=== PATIENT | male | born 1950 | race Caucasian/White ===

== ENCOUNTER 2019-03-30 11:25 | Inpatient (IN) | payer MEDICARE, BC ==
[2019-03-30] MEDS ORDERED: methylPREDNISolone Sodium Succinate 125 MG/2 ML SDV IVPUSH ONE (11:44)
[2019-03-30] MEDS ORDERED: Sodium Chloride 0.9% 1,000 ML IV ONE (11:45)
[2019-03-30] MEDS: Albuterol/Ipratropium 3.0-0.5 MG/3 ML Neb Soln NEB SCH ×3 (12:25→22:47)
[2019-03-30] MEDS ORDERED: Albuterol 0.083% 2.5 MG/3 ML Neb Soln NEB PRN (12:38)
[2019-03-30] MEDS: Sodium Chloride 0.9% 10 ML Syringe FLUSH PRN (12:39)
[2019-03-30 12:40] LABS: ANION GAP 15.1 mmol/L (5-15); CHLORIDE,CL 100 mmol/L (98-115); SODIUM,NA 141 mmol/L (136-145)
[2019-03-30 12:42] LABS: O2 DELIVERY DEVICE ROOM AIR; O2 SATURATION ARTERIAL 92 % (95-98); PCO2 ARTERIAL 41 mmHG (35-45); PO2 ARTERIAL 62 mmHG (80-105)
[2019-03-30 12:43] LABS: BASE EXCESS ARTERIAL 3 mmol/L (-2-3); BICARBONATE,ARTERIAL 27.2 mmol/L (22-26)
[2019-03-30] MEDS: Azithromycin 500 MG in Sodium Chloride 0.9% 250 ML IV SCH (13:04)
[2019-03-30] MEDS: cefTRIAXone 1 GM Vial IV SCH (13:04)
[2019-03-30] MEDS ORDERED: Cyclobenzaprine 10 MG Tab PO PRN (13:21)
[2019-03-30] MEDS: Sodium Chloride 0.9% 1,000 ML IV SCH ×2 (13:28→22:51)
--- NOTE | 2019-03-30 13:36 | CR ---
[id number] RAD/RAD Chest PA And Lateral EXAM: RAD Chest PA And Lateral INDICATION: COUGH. COMPARISON: March 09, 2019. DISCUSSION: Cardiomediastinal silhouette is normal in size and contour. No infiltrate, effusion, pneumothorax, or edema. IMPRESSION: No significant cardiopulmonary abnormality. Kevin Mckeon DO 03/30/19 [id number] Thank you for allowing us to participate in the care of your patient.
[2019-03-30] MEDS ORDERED: Iopamidol 755 Mg/ML 100 ML Bottle IV ONE (13:50)
[2019-03-30] MEDS ORDERED: Sodium Chloride 0.9% 100 ML IV SCH (14:00)
[2019-03-30] MEDS: Codeine/guaiFENesin 100-10 MG/5 ML Syrup 5 ML Cup PO PRN ×2 (14:01→22:47)
[2019-03-30] MEDS: Budesonide 0.5 MG/2 ML Neb Susp NEB SCH ×2 (14:48→21:12)
--- NOTE | 2019-03-30 15:24 | CT ---
[id number] CT/CT Chest W IV Exam: CT Chest W IV Clinical Data: BRONCHITIS COMPARISON: CORRELATION IS MADE WITH TODAY'S PLAIN FILM FINDINGS: Pulmonary embolus technique was obtained No pulmonary emboli are seen There is no evidence of infiltrate, effusion, or lung mass. There is no mediastinal mass or adenopathy The great vessels appear to be intact. IMPRESSION: NO PULMONARY EMBOLI NO INFILTRATE. Getachew Trejo MD 03/30/19 1523 Thank you for allowing us to participate in the care of your patient.
[2019-03-31] MEDS: Codeine/guaiFENesin 100-10 MG/5 ML Syrup 5 ML Cup PO PRN (02:49)
[2019-03-31] MEDS: Albuterol/Ipratropium 3.0-0.5 MG/3 ML Neb Soln NEB SCH ×3 (05:54→17:47)
[2019-03-31] MEDS: Budesonide 0.5 MG/2 ML Neb Susp NEB SCH ×2 (07:20→20:17)
[2019-03-31 07:57] LABS: ANION GAP 15.1 mmol/L (5-15); CHLORIDE,CL 98 mmol/L (98-115); SODIUM,NA 135 mmol/L (136-145)
[2019-03-31] MEDS: atorvaSTATin 40 MG Tab PO SCH (08:15)
[2019-03-31] MEDS: Aspirin 81 MG Tab.EC PO SCH (08:15)
[2019-03-31] MEDS: glipiZIDE 5 MG Tab.ER PO SCH (08:15)
[2019-03-31] MEDS: Losartan 50 MG Tab PO SCH (08:17)
[2019-03-31] MEDS: Hydrochlorothiazide 12.5 MG Cap PO SCH (08:18)
[2019-03-31] MEDS: amLODIPine 5 MG Tab PO SCH (08:18)
[2019-03-31] MEDS ORDERED: Furosemide 40 MG/4 ML VIAL IVPUSH ONE (09:00)
[2019-03-31] MEDS: methylPREDNISolone Sodium Succinate 125 MG/2 ML SDV IVPUSH SCH ×2 (10:19→17:46)
--- NOTE | 2019-03-31 12:31 | PN ---
03/31/2019 PATIENT NAME: LETI WHITTINGTON HISTORY OF PRESENT ILLNESS: This is 69-year-old male, who presented to the clinic yesterday with bronchitis and bronchospasm. He had recently been hospitalized in the [facility] for the same. He was treated with IV antibiotics and steroids as well as inhaled bronchodilators and did improve. However, relapsed on March 28, 2019. The patient started having a moist cough, but was unable to bring anything up. Initially, the mucus was yellow. The night before last, the night before he was admitted, his symptoms became extremely bad with consistent coughing. He felt short of breath and also felt as though he was wheezing. He had a negative influenza A and B testing in the [facility]. His influenza A and B were repeated yesterday and they were found to be negative as well. CBC was normal yesterday. Today, he is trending up with his WBCs, but I believe this is secondary to steroids. Initial blood gases showed a pH of 7.43, PCO2 of 41, PO2 of 62, bicarb of 27.2. He was on room air at the time of the ABGs and now is on 2 L of oxygen. CMP yesterday had significant findings for an elevated ALT, which is normalized today at 70. Today, his sodium is somewhat low at 135, which is just borderline low. Renal function is excellent with a BUN of 20 and a creatinine of 0.76 and a GFR of greater than 60. Lactate yesterday was 3.1. He does have blood cultures pending. He also has a sputum culture pending. The patient reports he is actually feeling quite a bit better today, although he did sleep most of the night sitting up. He was unable to lay down as this triggered a cough. The nursing staff reports that the patient has gained 2 pounds and they have noted some edema in his lower extremities. He is using compression stockings. He states that he had lower extremity edema in the [facility] as well. This has gotten worse. This may be secondary to his intravenous fluids. He did receive Solu-Medrol 125 mg IV x1 yesterday. He is being treated with ceftriaxone as well as azithromycin. The patient's chest x-ray showed no pneumonia and chest CT performed yesterday was negative for pulmonary embolism as well. PHYSICAL EXAMINATION: VITAL SIGNS: Temp is 97.1, pulse 96, respirations 20, blood pressure 124/73, his O2 saturation is 95% on 2 L of oxygen. SKIN: Warm and dry to touch. CARDIAC: Reveals S1, S2 to be normal. Rate and rhythm are regular. No murmur, click, or gallop is auscultated. LUNGS: Has some faintly heard rhonchi throughout with no wheezes or crackles. ABDOMEN: Obese, nontender. Bowel sounds present in all four quadrants. He does have a moderate amount of edema in his right lower extremity and a mild amount of edema in his left lower extremity. Peripheral pulses are palpable bilaterally. There are no color changes. IMPRESSION: Bronchitis with bronchospasm. The patient will remain in the hospital today and possibly tomorrow. He will be treated with Solu-Medrol 80 mg IV t.i.d. He will continue on azithromycin as well as Rocephin. He will have daily labs. We will give him a one-time dose of Lasix 40 mg IV x1 today. IV fluids will be discontinued. We will add a BNP to his lab work today. I have discussed the case with Dr. Shira Osorio and she may look in on him today as well. We will continue to monitor and I will see him over the weekend. /[id number]/MODL
[2019-03-31] MEDS: cefTRIAXone 1 GM Vial IV SCH (13:02)
[2019-03-31] MEDS: Azithromycin 500 MG in Sodium Chloride 0.9% 250 ML IV SCH (13:03)
[2019-04-01] MEDS: Albuterol/Ipratropium 3.0-0.5 MG/3 ML Neb Soln NEB SCH ×5 (00:40→22:56)
[2019-04-01] MEDS: methylPREDNISolone Sodium Succinate 125 MG/2 ML SDV IVPUSH SCH ×3 (00:47→11:47)
[2019-04-01 08:14] LABS: ANION GAP 15.1 mmol/L (5-15); CHLORIDE,CL 102 mmol/L (98-115); SODIUM,NA 141 mmol/L (136-145)
[2019-04-01] MEDS: Budesonide 0.5 MG/2 ML Neb Susp NEB SCH ×2 (09:44→19:55)
[2019-04-01] MEDS: Aspirin 81 MG Tab.EC PO SCH (09:48)
[2019-04-01] MEDS: glipiZIDE 5 MG Tab.ER PO SCH (09:48)
[2019-04-01] MEDS: Losartan 50 MG Tab PO SCH (09:48)
[2019-04-01] MEDS: atorvaSTATin 40 MG Tab PO SCH (09:48)
[2019-04-01] MEDS: amLODIPine 5 MG Tab PO SCH (09:48)
[2019-04-01] MEDS: Hydrochlorothiazide 12.5 MG Cap PO SCH (09:48)
[2019-04-01] MEDS: metFORMIN 500 MG Tab PO SCH ×2 (09:52→20:14)
[2019-04-01] MEDS ORDERED: Furosemide 40 MG/4 ML VIAL IVPUSH ONE (10:00)
[2019-04-01 10:08] LABS: O2 DELIVERY DEVICE ROOM AIR; PCO2 ARTERIAL 44 mmHG (35-45)
[2019-04-01 10:10] LABS: BASE EXCESS ARTERIAL 0 mmol/L (-2-3); BICARBONATE,ARTERIAL 25.6 mmol/L (22-26); O2 SATURATION ARTERIAL 78 % (95-98); PO2 ARTERIAL 44 mmHG (80-105)
[2019-04-01] MEDS: cefTRIAXone 1 GM Vial IV SCH (11:48)
[2019-04-01] MEDS ORDERED: Sodium Chloride 0.9% 100 ML SDV FLUSH SCH (12:00)
[2019-04-01] MEDS: Azithromycin 500 MG in Sodium Chloride 0.9% 250 ML IV SCH (12:11)
[2019-04-01] MEDS ORDERED: Sodium Chloride 0.9% 10 ML SDV IV SCH (12:15)
[2019-04-01] MEDS ORDERED: Sodium Chloride 0.9% 100 ML IV SCH ×2 (12:45)
[2019-04-01] MEDS: Codeine/guaiFENesin 100-10 MG/5 ML Syrup 5 ML Cup PO PRN (16:48)
[2019-04-01] MEDS ORDERED: Insulin Aspart 100 Units/ML 3 ML Pen SUBCUT ONE ×3 (20:34→23:31)
[2019-04-02] MEDS: methylPREDNISolone Sodium Succinate 125 MG/2 ML SDV IVPUSH SCH ×3 (00:11→12:32)
[2019-04-02] MEDS: Sodium Chloride 0.9% 10 ML Syringe FLUSH PRN (00:16)
[2019-04-02] MEDS: Insulin Aspart 100 Units/ML 3 ML Pen SUBCUT SCH ×4 (00:18→12:10)
[2019-04-02] MEDS: Albuterol/Ipratropium 3.0-0.5 MG/3 ML Neb Soln NEB SCH ×2 (06:02→10:53)
[2019-04-02 06:06] VITALS: BP 122/66; PULSE 88
[2019-04-02 08:02] LABS: ANION GAP 15.9 mmol/L (5-15); CHLORIDE,CL 100 mmol/L (98-115); SODIUM,NA 140 mmol/L (136-145)
[2019-04-02] MEDS: Budesonide 0.5 MG/2 ML Neb Susp NEB SCH (08:22)
[2019-04-02] MEDS: amLODIPine 5 MG Tab PO SCH (08:22)
[2019-04-02] MEDS: Aspirin 81 MG Tab.EC PO SCH (08:23)
[2019-04-02] MEDS: Losartan 50 MG Tab PO SCH (08:23)
[2019-04-02] MEDS: Hydrochlorothiazide 12.5 MG Cap PO SCH (08:23)
[2019-04-02] MEDS: metFORMIN 500 MG Tab PO SCH (08:24)
[2019-04-02] MEDS: glipiZIDE 5 MG Tab.ER PO SCH (08:24)
[2019-04-02] MEDS: atorvaSTATin 40 MG Tab PO SCH (08:24)
[2019-04-02] MEDS: cefTRIAXone 1 GM Vial IV SCH ×2 (10:43→12:32)
[2019-04-02] MEDS: Azithromycin 500 MG in Sodium Chloride 0.9% 250 ML IV SCH ×2 (10:48→12:32)
--- NOTE | 2019-04-03 10:06 | PN ---
04/01/2019 PATIENT NAME: LETI WHITTINGTON SUBJECTIVE: This is a 69-year-old male, who has been hospitalized since 03/30/2019, for bronchitis with bronchospasm. The patient states he is feeling quite a bit better. His chest x-ray was negative for pneumonia, and his chest CT was negative for pneumonia as well as pulmonary embolism. He was recently hospitalized in the [facility] for 5 days prior to the holiday. He did feel like he improved and was able to enjoy . However, on his condition declined considerably and he relapsed. He has been treated with IV steroid as well as IV ceftriaxone and azithromycin. He is diabetic and takes glipizide as well as metformin. His metformin has been held for the last 2 days due to the contrast dye given with his CT scan. His blood sugars have been elevated due to not being on metformin and also being on IV steroids. His lactate was 3.1 on admission. His ABG showed that he was somewhat hypoxic with a PO2 of 62. He is not retaining any CO2. The CO2 is 41, pH was 7.43. Other significant labs include a normal procalcitonin and a trending upward of his white blood cell count, again secondary to the steroids. The patient states he is feeling better. He actually slept very well last night, which is the first time in a long time that he has. His and he just celebrated their 50th anniversary yesterday and a small green party was given for the patient by our staff. His is with him at the bedside. The patient clinically appears to be feeling better. He was given a one time dose of Lasix 40 mg IV yesterday due to the fact that he had some fluid retention secondary to IV fluids. His BNP was normal at 53. OBJECTIVE: VITAL SIGNS: On examination, temp 96.8, pulse 80, respirations 16, blood pressure 120/66. His O2 saturation is 91% on room air at 3 a.m. It was 86% on 2 L. SKIN: Warm and dry to touch. CARDIAC: Reveals S1 and S2 to be normal. Rate and rhythm are regular. No murmur, click, or gallops auscultated. LUNGS: Clear. ABDOMEN: Soft, nontender. Bowel sounds present in all 4 quadrants. There is a small amount of pedal edema, right greater than left. IMPRESSION: 1. Bronchitis with bronchospasm. The patient is improving considerably and will be ready for discharge tomorrow provided that his condition does not deteriorate. He is improving. He feels better, he looks better, and he sounds better. His labs have stayed stable. We did repeat arterial blood gases today, and I will review them when they are available. Solu-Medrol was decreased from 80 mg t.i.d. to 80 mg b.i.d. He will receive an IV dose of 80 mg of Solu-Medrol in the morning prior to discharge and will be placed on a steroid taper after discharge as well as oral azithromycin. 2. Pedal edema. He still has some lingering pedal edema. I will give him a dose of Lasix again today to hopefully improve that. The patient has no history of congestive heart failure. 3. Hypoxemia, mild. I did repeat the ABGs today just to see where he is at as compared to his baseline. He is not wearing oxygen at this time. Chest x- ray was negative for pneumonia and his CT was negative for pulmonary embolism. He may have a component of sleep apnea, which he is fully aware of. He rarely sleeps very well at night. He may be a good candidate for a sleep study. 4. Diabetes mellitus, uncontrolled. Risk versus benefit ratio discussed with the patient as far as his blood sugars go in regard to the use of the steroids. He will start back on his metformin today. 5. Hypertension, his blood pressure has been stable. He is currently taking amlodipine as well as losartan-HCTZ. Amlodipine may be contributing to the pedal edema as well. 6. Hypercholesterolemia. He is on atorvastatin. PLAN: Discharge tomorrow. /[id number]/MODL
--- NOTE | 2019-04-03 13:55 | DISCH ---
HISTORY OF PRESENT ILLNESS: This is 69-year-old male, who was admitted to the hospital on March 30, 2019, with bronchitis and bronchospasm. He had had a recent hospitalization in the [facility] for the same. He did improve after antibiotics and IV steroids, but relapsed on [place] '[place]. The patient has gradually improved. His labs have remained stable. The only uncontrolled lab was his blood sugars. He was started on a sliding scale of insulin yesterday. He has received two doses of IV furosemide due to some lower extremity edema. The patient is improved from pulmonary standpoint. He did have ABGs repeated yesterday which showed a PO2 of 44 with an O2 saturation of 98. I am unclear whether this is possibly a venous stick. He had been saturating in the 90s. We did have him on oxygen during his hospitalization. The patient is ready for discharge. He does not have a glucometer at home at this time. He does own a glucometer, however, is at his [facility]. White count has been slightly elevated, mostly due to the steroids. PHYSICAL EXAMINATION: VITAL SIGNS: Temp is 97.7, pulse 88, respirations 20, blood pressure 122/66, O2 saturation is 92% on 2 L of oxygen. SKIN: Warm and dry to touch. CARDIAC: Reveals S1, S2 to be normal. Rate and rhythm are regular. No murmur, click, or gallop is auscultated. LUNGS: Clear without rales, wheezes, or rhonchi. ABDOMEN: Obese, soft, nontender. Bowel sounds present in all four quadrants. There is a trace amount of pedal edema with the right being worse than the left. PROBLEM: 1. Bronchitis with bronchospasm. He has improved from a pulmonary standpoint. He will continue on a prednisone taper. No need for further antibiotics as he had been covered with both ceftriaxone and azithromycin in the hospital. 2. 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 He was discharged with glipizide increased from 10 mg to 20 mg. He will need an Endocrinology consultation if his diabetes does not improve. It has been uncontrolled for quite some time. The patient needs to get more serious and more committed to lifestyle changes as well as monitoring his blood glucose levels. 3. Pedal edema, etiology unclear, however, it may be secondary to his amlodipine. We will continue to keep an eye on this. 4. Hypertension, stable with losartan and HCTZ and amlodipine. 5. Hypercholesterolemia, on statin. 6. Hypoxemia, I am unclear whether his ABGs were accurate. His chest x-ray was negative for pneumonia and CT was negative for PE. He may have a component of sleep apnea, which he is fully aware of. He rarely sleeps very well at night. He would be a good candidate for sleep study and this will be scheduled for him as an outpatient. /[id number]/MODL
== END 2019-04-02 13:05 | disposition home or self-care (01) | DRG 203 ==
LOC: KA.MS 11:25 → UNDOADMOB 11:28 → OBSVTOIN 13:35 → KA.MS 13:35
DX: R05 Cough (principal); J40 Bronchitis, not specified as acute or chronic; J98.01 Acute bronchospasm; R09.02 Hypoxemia; E11.9 Type 2 diabetes mellitus without complications; T38.0X5A Adverse effect of glucocorticoids and synthetic analogues, initial encounter; T46.1X5A Adverse effect of calcium-channel blockers, initial encounter; R60.0 Localized edema; I10 Essential (primary) hypertension; E78.00 Pure hypercholesterolemia, unspecified; Z79.84 Long term (current) use of oral hypoglycemic drugs; Z79.82 Long term (current) use of aspirin; Z79.899 Other long term (current) drug therapy; Z98.890 Other specified postprocedural states
CPT/HCPCS: 36415; 36600; 71046; 71260; 80053; 81001; 82803; 82962; 83605; 83880; 84145; 85025; 87040; 87077; 87804; 94640; 96365; 96375; A9270-GY; G0378; J0456; J0696; J1815-GY; J1940; J2930; J7030; J7050; J7620-GY; Q9967

== ENCOUNTER 2019-04-08 18:17 | Emergency (ER) | payer MEDICARE, BC ==
--- NOTE | 2019-04-08 19:21 | CR ---
[id number] RAD/RAD Chest PA And Lateral EXAM: RAD Chest PA And Lateral CLINICAL DATA: COUGH COMPARISON: CORRELATION IS MADE WITH THE EXAM OF MARCH 30, 2019 FINDINGS: The lungs are clear. The cardiomediastinal contour is prominent but stable. The regional bones and soft tissues are unremarkable. IMPRESSION: NO ACUTE PROCESS. Getachew Trejo MD 04/08/19 8453 Thank you for allowing us to participate in the care of your patient.
--- NOTE | 2019-04-08 19:24 | EDM.PDOC ---
ED HPI GENERAL MEDICAL PROBLEM - General Chief Complaint: General Stated Complaint: rattly respirations Time Seen by Provider: 04/08/19 19:04 Source of Information: Reports: Patient, Other (records from recent hospitalizations (two in last 4 weeks)) History Limitations: Reports: No Limitations - History of Present Illness INITIAL COMMENTS - FREE TEXT/NARRATIVE: Patient presents with unproductive cough that is worse again he says. He was discharged from [facility] 6 days ago and had been hospitalized for 5 days in [place] 2 weeks prior to that. Both admissions were for Bronchitis with bronchospasm. Each time he improved somewhat but then worsened a few days later. He says the crackly-gurgly sound with his breathing never resolved though. Today he is getting worse again and coughing all the time. The coughing gets so bad when he lies down that he really can't and is unable to sleep. He has been treated with IV antibiotics, lasix, prednisone. He is still on a long prednisone taper currently. - Related Data Allergies Allergy/AdvReac Type Severity Reaction Status Date / Time No Known Drug Allergies Allergy Cannot Verified 04/08/19 18:33 Remember Home Meds: Home Meds Aspirin [Halfprin] 81 mg PO DAILY 04/13/15 [History] Losartan/Hydrochlorothiazide [Losartan-HCTZ 100-12.5 MG] 1 tab PO DAILY [History] atorvaSTATin [Lipitor] 40 mg PO BEDTIME 04/13/15 [History] metFORMIN HCl [Metformin HCl] 1,000 mg PO BID 04/13/15 [History] Cyclobenzaprine HCl 10 mg PO BEDTIME PRN 03/30/19 [History] amLODIPine Besylate [Amlodipine Besylate] 10 mg PO DAILY 03/30/19 [History] glipiZIDE [Glipizide Xl] 10 mg PO DAILY 03/30/19 [History] predniSONE [Prednisone] 10 mg PO DAILY 04/08/19 [History] Past Medical History HEENT History: Reports: Cataract, Impaired Vision Cardiovascular History: Reports: High Cholesterol, Hypertension Respiratory History: Reports: None, Other (See Below) Other Respiratory History: Pneumonia in the past Gastrointestinal History: Reports: None Genitourinary History: Reports: Renal Calculus Musculoskeletal History: Reports: None Neurological History: Reports: None Psychiatric History: Reports: None Endocrine/Metabolic History: Reports: Diabetes, Type II, Obesity/BMI 30+ Hematologic History: Reports: None Immunologic History: Reports: None Oncologic (Cancer) History: Reports: None Dermatologic History: Reports: None - Infectious Disease History Infectious Disease History: Reports: None - Past Surgical History Head Surgeries/Procedures: Reports: None HEENT Surgical History: Reports: Cataract Surgery Cardiovascular Surgical History: Reports: None Respiratory Surgical History: Reports: None Male Surgical History: Reports: Kidney Stone Extraction Musculoskeletal Surgical History: Reports: None Social & Family History - Family History Family Medical History: Noncontributory - Tobacco Use Smoking Status *Q: Never Smoker Second Hand Smoke Exposure: No - Caffeine Use Caffeine Use: Reports: Coffee - Recreational Drug Use Recreational Drug Use: No ED ROS GENERAL - Review of Systems Review Of Systems: See Below Constitutional: Denies: Fever, Chills HEENT: Denies: Throat Pain, Vision Change Respiratory: Reports: Shortness of Breath, Cough. Denies: Sputum Cardiovascular: Denies: Chest Pain, Lightheadedness, Syncope GI/Abdominal: Denies: Diarrhea, Vomiting : Denies: Dysuria Musculoskeletal: Denies: Neck Pain, Shoulder Pain, Arm Pain, Back Pain Skin: Denies: Cyanosis, Jaundice, Mottled, Pallor, Diaphoresis Neurological: Denies: Confusion, Dizziness, Headache, Seizure, Syncope, Trouble Speaking, Difficulty Walking Psychiatric: Denies: Agitation, Anxiety, Confusion ED EXAM, GENERAL - Physical Exam Exam: See Below Exam Limited By: No Limitations General Appearance: Alert, WD/WN, No Apparent Distress Eye Exam: Bilateral Eye: EOMI, Normal Inspection, PERRL Ears: Normal External Exam, Hearing Grossly Normal Nose: Normal Inspection, No Blood Throat/Mouth: Normal Inspection, Normal Lips, Normal Voice, No Airway Compromise Head: Atraumatic, Normocephalic Neck: Normal Inspection, Full Range of Motion Respiratory/Chest: Crackles, Rhonchi, Other (There are audible crackles with expiration and auscultation reveals loud coarse crackles and fine rhonchi throughout but worse on left lung.). No: Stridor Cardiovascular: Regular Rate, Rhythm GI/Abdominal: Soft, Non-Tender Back Exam: Normal Inspection, Full Range of Motion. No: CVA Tenderness (L), CVA Tenderness (R) Extremities: Normal Range of Motion, Pedal Edema (3-4 bilat) Neurological: Alert, Oriented, Normal Cognition, No Motor/Sensory Deficits Psychiatric: Normal Affect, Normal Mood Skin Exam: Warm, Dry, Intact, Normal Color, No Rash Course - Vital Signs Last Recorded V/S: Last Vital Signs Temp 97.1 F 04/08/19 18:30 Pulse 84 04/08/19 20:01 Resp 20 04/08/19 20:01 BP 121/69 04/08/19 20:01 Pulse Ox 94 L 04/08/19 20:01 - Orders/Labs/Meds Labs: Laboratory Tests 04/08/19 04/08/19 04/08/19 Range/Units 07:05 07:05 07:05 WBC 12.53 H (5.00-10.00) 10^3/uL RBC 5.56 (4.50-6.00) 10^6/uL Hgb 16.8 D (13.0-17.0) g/dL Hct 49.6 (40.0-52.0) % MCV 89.2 (82.0-92.0) fL MCH 30.2 (27.0-31.0) pg MCHC 33.9 (32.0-36.0) g/dL RDW 13.4 (11.5-14.5) % Plt Count 278 D (150-400) 10^3/uL MPV 9.6 (7.4-10.4) fL Immature Gran % (Auto) 2.2 (0.0-5.0) % Neut % (Auto) 84.0 H (50.0-70.0) % Lymph % (Auto) 8.5 L (20.0-40.0) % [place] % (Auto) 5.2 (2.0-8.0) % Eos % (Auto) 0.0 L (1.0-3.0) % Baso % (Auto) 0.1 (0.0-1.0) % Immature Gran # (Auto) 0.27 (0.00-0.50) 10^3/uL Neut # (Auto) 10.54 H (2.50-7.00) 10^3/uL Lymph # (Auto) 1.06 (1.00-4.00) 10^3/uL [place] # (Auto) 0.65 (0.10-0.80) 10^3/uL Eos # (Auto) 0.00 L (0.10-0.30) 10^3/uL Baso # (Auto) 0.01 (0.00-0.10) 10^3/uL Sodium 140 (136-145) mmol/L Potassium 4.9 (3.3-5.3) mmol/L Chloride 101 (98-115) mmol/L Carbon Dioxide 26.3 (21.0-32.0) mmol/L Anion Gap 17.6 H (5-15) mmol/L BUN 23 (6-25) mg/dL Creatinine 0.85 (0.51-1.17) mg/dL Est Cr Clr Drug Dosing 74.52 mL/min Estimated GFR (MDRD) > 60 mL/min Glucose 260 H (75 - 99) mg/dL Lactic Acid 4.4 H (0.4-2.0) mmol/L Calcium 9.8 (8.7-10.3) mg/dL Total Bilirubin 1.1 H (0.2-1.0) mg/dL AST 29 (15-37) U/L ALT 114 H (12-78) U/L Alkaline Phosphatase 78 (46-116) IU/L B-Natriuretic Peptide 27 (0-100) pg/mL Total Protein 7.0 (6.4-8.2) g/dL Albumin 3.31 (3.00-4.80) g/dL - Re-Assessments/Exams Free Text/Narrative Re-Assessment/Exam: 04/08/19 20:17 CXR is clear. Labs show elevated mildly WBC and ANC consistent with prednisone course and not higher than he was during his hospitalization last week. With the severity of the respiratory crackles and their persistence despite two hospitalizations and treatment I feel he needs further evaluation by a funeral home location manager. Patient agrees and I discussed case with Dr. Ruiz, hospitalist at [facility] in [place] who accepted for transfer. Patient is stable for transfer via private vehicle, I feel, with his daughter driving. They would prefer this too. We pushed the last two sets of CXR and chest CT to [facility] also. Dr. 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 04/08/19 20:23 Patient stable at discharge and he will go directly to [facility]. Departure - Departure Time of Disposition: 20:28 Disposition: DC/Tfer to Acute Hospital 02 Condition: Good Clinical Impression: Persistent cough for 3 weeks or longer, Respiratory crackles of both lungs - Discharge Information Forms: ED Department Discharge Additional Instructions: 1. Go to [facility] in [place]. Sepsis Event Note - Evaluation Sepsis Screening Result: No Definite Risk - Focused Exam Vital Signs: Vital Signs Temp Pulse Resp BP Pulse Ox 04/08/19 20:01 84 20 121/69 94 L 04/08/19 18:30 97.1 F 96 22 H 104/55 L 92 L Date Exam was Performed: 04/08/19 Time Exam was Performed: 20:16
[2019-04-08 19:40] LABS: ANION GAP 17.6 mmol/L (5-15); CHLORIDE,CL 101 mmol/L (98-115); SODIUM,NA 140 mmol/L (136-145)
[2019-04-08 20:02] VITALS: BP 121/69; PULSE 84
== END 2019-04-08 20:30 ==
LOC: KA.ED 18:17
DX: R09.89 Other specified symptoms and signs involving the circulatory and respiratory systems (principal); I10 Essential (primary) hypertension; E78.00 Pure hypercholesterolemia, unspecified; E11.9 Type 2 diabetes mellitus without complications; E66.9 Obesity, unspecified; Z68.39 Body mass index [BMI] 39.0-39.9, adult; Z79.82 Long term (current) use of aspirin; Z79.84 Long term (current) use of oral hypoglycemic drugs; Z79.899 Other long term (current) drug therapy
CPT/HCPCS: 36415; 71046; 80053; 83605; 83880; 85025; 87804; 99284; 99284-25

== ENCOUNTER 2019-05-09 10:23 | Emergency (ER) | payer MEDICARE, BC ==
[2019-05-09] MEDS ORDERED: Sodium Chloride 0.9% 10 ML Syringe FLUSH PRN (10:44)
[2019-05-09] MEDS ORDERED: Sodium Chloride 0.9% 1,000 ML IV ONE (10:44)
--- NOTE | 2019-05-09 10:59 | EDM.PDOC ---
ED HPI GENERAL MEDICAL PROBLEM - General Chief Complaint: General Stated Complaint: WEAK/SOB Time Seen by Provider: 05/09/19 10:41 Source of Information: Reports: Patient History Limitations: Reports: No Limitations - History of Present Illness INITIAL COMMENTS - FREE TEXT/NARRATIVE: Patient is a 69-year-old gentleman who presents to the emergency department this morning via private vehicle with a complaint of shortness of breath and weakness. Patient states that he awoke at 5 a.m. this morning, had breakfast, and went back to bed. He woke again at 7 a.m. feeling short of breath and very weak, barely get out of bed. Contacted his and she decided to bring him to the emergency department. Patient does take 2 blood pressure medicines and took both at 5 a.m. this morning, however, has no other cardiac history. Upon presentation, patient was found to be hypotensive and bradycardic. However, prior to even IV therapy, blood pressure and heart rate returned to normal limits. Patient denies chest pain, fever, nausea, vomiting, diarrhea, abdominal pain, lower extremity edema, previous cardiac catheterization or surgery, change in medication, upper respiratory symptoms, or out of country travel. Patient took 325 mg aspirin this a.m. Onset: Today Duration: Hour(s): Quality: Reports: Other (Denies chest pain) Severity: Mild Improves with: Reports: None Worsens with: Reports: None Associated Symptoms: Reports: Shortness of Breath. Denies: Cough, Diaphoresis, Fever/Chills, Nausea/Vomiting - Related Data Allergies Allergy/AdvReac Type Severity Reaction Status Date / Time No Known Drug Allergies Allergy Cannot Verified 05/09/19 11:07 Remember Home Meds: Home Meds atorvaSTATin [Lipitor] 40 mg PO BEDTIME 04/13/15 [History] metFORMIN HCl [Metformin HCl] 1,000 mg PO BID 04/13/15 [History] amLODIPine Besylate [Amlodipine Besylate] 10 mg PO DAILY 03/30/19 [History] glipiZIDE [Glipizide Xl] 10 mg PO DAILY 03/30/19 [History] Aspirin 325 mg PO DAILY 05/09/19 [History] Fluticasone/Salmeterol [Advair 100-50] 1 puff INH BID 05/09/19 [History] Losartan Potassium [Cozaar] 100 mg PO DAILY 05/09/19 [History] Omeprazole 20 mg PO TIDAC 05/09/19 [History] hydroCHLOROthiazide [Hydrochlorothiazide] 12.5 mg PO DAILY 05/09/19 [History] Past Medical History HEENT History: Reports: Cataract, Impaired Vision Cardiovascular History: Reports: High Cholesterol, Hypertension Respiratory History: Reports: None, Other (See Below) Other Respiratory History: Pneumonia in the past Gastrointestinal History: Reports: None Genitourinary History: Reports: Renal Calculus Musculoskeletal History: Reports: None Neurological History: Reports: None Psychiatric History: Reports: None Endocrine/Metabolic History: Reports: Diabetes, Type II, Obesity/BMI 30+ Hematologic History: Reports: None Immunologic History: Reports: None Oncologic (Cancer) History: Reports: None Dermatologic History: Reports: None - Infectious Disease History Infectious Disease History: Reports: None - Past Surgical History Head Surgeries/Procedures: Reports: None HEENT Surgical History: Reports: Cataract Surgery Cardiovascular Surgical History: Reports: None Respiratory Surgical History: Reports: None Male Surgical History: Reports: Kidney Stone Extraction Musculoskeletal Surgical History: Reports: None Social & Family History - Family History Family Medical History: Noncontributory - Caffeine Use Caffeine Use: Reports: Coffee ED ROS GENERAL - Review of Systems Review Of Systems: Comprehensive ROS is negative, except as noted in HPI. Constitutional: Reports: No Symptoms HEENT: Reports: No Symptoms Respiratory: Reports: Shortness of Breath Cardiovascular: Reports: No Symptoms Endocrine: Reports: No Symptoms GI/Abdominal: Reports: No Symptoms : Reports: No Symptoms Musculoskeletal: Reports: No Symptoms Skin: Reports: No Symptoms Neurological: Reports: No Symptoms Psychiatric: Reports: No Symptoms Hematologic/Lymphatic: Reports: No Symptoms Immunologic: Reports: No Symptoms ED EXAM, GENERAL - Physical Exam Exam: See Below Exam Limited By: No Limitations General Appearance: Alert, WD/WN, No Apparent Distress Eye Exam: Bilateral Eye: Normal Inspection Nose: Normal Inspection, Normal Mucosa, No Blood Throat/Mouth: Normal Inspection, Normal Oropharynx, No Airway Compromise Head: Atraumatic, Normocephalic Neck: Normal Inspection, Supple, Non-Tender, Full Range of Motion Respiratory/Chest: No Respiratory Distress, Lungs Clear, Normal Breath Sounds, No Accessory Muscle Use, Chest Non-Tender Cardiovascular: Normal Peripheral Pulses, Regular Rate, Rhythm, No Murmur GI/Abdominal: Normal Bowel Sounds, Soft, Non-Tender, No Organomegaly, No Distention, No Abnormal Bruit, No Mass Back Exam: Normal Inspection. No: CVA Tenderness (L), CVA Tenderness (R) Extremities: Normal Inspection, No Pedal Edema Neurological: Alert, Oriented, CN II-XII Intact, Normal Cognition, No Motor/ Sensory Deficits Psychiatric: Normal Affect, Normal Mood Skin Exam: Warm, Dry, Intact, Normal Color, No Rash Lymphatic: No Adenopathy EKG INTERPRETATION EKG Date: 05/09/19 Time: 10:50 Rhythm: NSR Rate (Beats/Min): 86 P-Wave: Present QRS: RBBB ST-T: Normal QT: Normal EKG Interpretation Comments: Right bundle branch block with first-degree block, bifascicular Course - Vital Signs Last Recorded V/S: Last Vital Signs Temp 98.1 F 05/09/19 10:30 Pulse 85 05/09/19 11:30 Resp 20 05/09/19 11:30 BP 115/52 L 05/09/19 11:30 Pulse Ox 95 05/09/19 11:30 - Orders/Labs/Meds Orders: Active Orders 24 hr Category Date Time Status EKG Documentation Completion [RC] ASDIRECTED Care 05/09/19 10:43 Ordered Peripheral IV Care [RC] . DIRECTED Care 05/09/19 10:44 Active Heparin Sodium/D5W 250 ml Med 05/09/19 12:30 Ordered IV STAT Sodium Chloride 0.9% [Saline Flush] Med 05/09/19 10:44 Ordered 10 ml FLUSH Q8HR PRN Peripheral IV Insertion Adult [OM.PC] Routine Oth 05/09/19 10:44 Ordered EKG 12 Lead [EK] Routine Ther 05/09/19 10:42 Ordered Medication Orders Heparin Sodium/Dextrose () 250 mls @ 1,088.62 mls/hr IV STAT YUKI Stop: 05/10/19 23:59 Sodium Chloride (Saline Flush) 10 ml FLUSH Q8HR PRN PRN Reason: keep vein open Labs: Laboratory Tests 05/09/19 05/09/19 05/09/19 Range/Units 10:48 10:48 10:48 WBC 8.27 (5.00-10.00) 10^3/uL RBC 4.90 (4.50-6.00) 10^6/uL Hgb 14.1 D (13.0-17.0) g/dL Hct 43.6 (40.0-52.0) % MCV 89.0 (82.0-92.0) fL MCH 28.8 (27.0-31.0) pg MCHC 32.3 (32.0-36.0) g/dL RDW 14.4 (11.5-14.5) % Plt Count 245 (150-400) 10^3/uL MPV 10.0 (7.4-10.4) fL Immature Gran % (Auto) 0.2 (0.0-5.0) % Neut % (Auto) 72.4 H (50.0-70.0) % Lymph % (Auto) 16.2 L (20.0-40.0) % [place] % (Auto) 10.3 H (2.0-8.0) % Eos % (Auto) 0.7 L (1.0-3.0) % Baso % (Auto) 0.2 (0.0-1.0) % Immature Gran # (Auto) 0.02 (0.00-0.50) 10^3/uL Neut # (Auto) 5.98 (2.50-7.00) 10^3/uL Lymph # (Auto) 1.34 (1.00-4.00) 10^3/uL [place] # (Auto) 0.85 H (0.10-0.80) 10^3/uL Eos # (Auto) 0.06 L (0.10-0.30) 10^3/uL Baso # (Auto) 0.02 (0.00-0.10) 10^3/uL PT 9.2 (8.9-11.4) SEC INR 0.9 (0.9-1.1) APTT 25.6 (23.1-31.3) SEC D-Dimer, Quantitative 102 (<400) ng/mL Sodium 140 (136-145) mmol/L Potassium 4.1 (3.3-5.3) mmol/L Chloride 101 (98-115) mmol/L Carbon Dioxide 24.0 (21.0-32.0) mmol/L Anion Gap 19.1 H (5-15) mmol/L BUN 17 (6-25) mg/dL Creatinine 0.99 (0.51-1.17) mg/dL Est Cr Clr Drug Dosing 63.99 mL/min Estimated GFR (MDRD) > 60 mL/min Glucose 244 H (75 - 99) mg/dL Calcium 9.2 (8.7-10.3) mg/dL Magnesium 1.4 L (1.8-2.4) mg/dL Total Bilirubin 0.8 (0.2-1.0) mg/dL AST 35 (15-37) U/L ALT 51 (12-78) U/L Alkaline Phosphatase 44 L (46-116) IU/L Troponin I 0.08 H* (0.00-0.070) ng/mL Total Protein 6.6 (6.4-8.2) g/dL Albumin 3.10 (3.00-4.80) g/dL Meds: Medications Generic Name Dose Route Start Last Admin Trade Name Freq PRN Reason Stop Dose Admin Heparin Sodium/Dextrose 250 mls @ 1,088.62 mls/hr 05/09/19 12:30 IV 05/10/19 23:59 STAT YUKI 1,000 UNITS/KG/HR Sodium Chloride 10 ml 05/09/19 10:44 Saline Flush FLUSH Q8HR PRN keep vein open Discontinued Medications Generic Name Dose Route Start Last Admin Trade Name Freq PRN Reason Stop Dose Admin Aspirin 324 mg 05/09/19 12:15 Aspirin PO 05/09/19 12:16 ONETIME ONE Sodium Chloride 1,000 mls @ 999 mls/hr 05/09/19 10:44 05/09/19 10:53 Normal Saline IV 05/09/19 11:44 999 mls/hr .BOLUS ONE Administration - Radiology Interpretation Free Text/Narrative:: Chest x-ray shows no acute cardiopulmonary process - Re-Assessments/Exams Free Text/Narrative Re-Assessment/Exam: 05/09/19 12:21 Patient afebrile, vital signs stable, no complaint of chest pain. Discussed case with Dr. Pelayo, cardiology at [facility], and Dr. Ruiz, hospitalist at [facility]. They've accepted patient for transfer and patient will be transferred via [facility] ground ambulance. Heparin drip at 12 units per hour initiated in ER. Patient ready took 325 aspirin this a.m. 05/09/19 12:22 05/09/19 12:25 Departure - Departure Time of Disposition: 12:23 Disposition: DC/Tfer to Acute Hospital 02 Condition: Fair Clinical Impression: IL, Myocardial infarction, Fascicular block, Elevated troponin - Discharge Information Referrals: Claudia Murphy PA-C [Primary Care Provider] - Forms: ED Department Discharge Sepsis Event Note - Focused Exam Vital Signs: Vital Signs Temp Pulse Resp BP Pulse Ox 05/09/19 11:30 85 20 115/52 L 95 05/09/19 11:00 85 12 118/53 L 95 05/09/19 10:45 93 19 111/53 L 95 05/09/19 10:30 98.1 F 28 L 18 113/64 97 Date Exam was Performed: 05/09/19 Time Exam was Performed: 12:21 - My Orders Last 24 Hours: My Active Orders 05/09/19 10:42 EKG 12 Lead [EK] Routine 05/09/19 10:43 EKG Documentation Completion [RC] ASDIRECTED 05/09/19 10:44 Peripheral IV Care [RC] . DIRECTED Sodium Chloride 0.9% [Saline Flush] 10 ml FLUSH Q8HR PRN Peripheral IV Insertion Adult [OM.PC] Routine 05/09/19 12:30 Heparin Sodium/D5W 250 ml IV STAT - Assessment/Plan Last 24 Hours: My Active Orders 05/09/19 10:42 EKG 12 Lead [EK] Routine 05/09/19 10:43 EKG Documentation Completion [RC] ASDIRECTED 05/09/19 10:44 Peripheral IV Care [RC] . DIRECTED Sodium Chloride 0.9% [Saline Flush] 10 ml FLUSH Q8HR PRN Peripheral IV Insertion Adult [OM.PC] Routine 05/09/19 12:30 Heparin Sodium/D5W 250 ml IV STAT Assessment:: Elevated troponin Plan: Transferred to [facility]
--- NOTE | 2019-05-09 11:24 | CR ---
[id number] RAD/RAD Chest PA or AP 1V EXAM: RAD Chest PA or AP 1V INDICATION: CHEST PAIN. COMPARISON: March 2019. DISCUSSION: Cardiomediastinal silhouette is normal in size and contour. No infiltrate, effusion, pneumothorax, or edema. IMPRESSION: No acute findings. Cameron Easton MD 05/09/19 1123 Thank you for allowing us to participate in the care of your patient.
[2019-05-09 11:26] LABS: ANION GAP 19.1 mmol/L (5-15); CHLORIDE,CL 101 mmol/L (98-115); SODIUM,NA 140 mmol/L (136-145)
[2019-05-09] MEDS ORDERED: Aspirin 81 MG Tab.Chew PO ONE (12:15)
[2019-05-09] MEDS ORDERED: Heparin Sodium/D5W 250 ML IV SCH ×2 (12:30→12:45)
[2019-05-09 13:31] VITALS: BP 124/67; PULSE 94
== END 2019-05-09 14:10 ==
LOC: KA.ED 10:23
DX: I21.9 Acute myocardial infarction, unspecified (principal); I44.60 Unspecified fascicular block; R79.89 Other specified abnormal findings of blood chemistry; I10 Essential (primary) hypertension; E11.9 Type 2 diabetes mellitus without complications; E78.00 Pure hypercholesterolemia, unspecified; E66.9 Obesity, unspecified; Z68.37 Body mass index [BMI] 37.0-37.9, adult; Z79.899 Other long term (current) drug therapy; Z79.82 Long term (current) use of aspirin; Z79.84 Long term (current) use of oral hypoglycemic drugs
CPT/HCPCS: 71045; 80053; 83735; 84484; 85025; 85379; 85610; 85730; 93005; 96361; 96365; 99284; 99285-25; J1644; J7030

== ENCOUNTER 2019-06-25 18:07 | Emergency (ER) | payer MEDICARE, BC ==
--- NOTE | 2019-06-25 19:10 | EDM.PDOC ---
ED HPI GENERAL MEDICAL PROBLEM - General Chief Complaint: Cardiovascular Problem Stated Complaint: PASSED OUT Time Seen by Provider: 06/25/19 18:30 Source of Information: Reports: Patient, Family (daughter) History Limitations: Reports: No Limitations - History of Present Illness INITIAL COMMENTS - FREE TEXT/NARRATIVE: 69 yo male presents with family for syncopy episode that occured 1530 today. He was along at [employer]. Playing cards. [place] dizzy. NO chest pain, denies palpations, SOB, diaphoresis.Bummed his head on floor. NO STRATTON. Dizziness and weakness resolved prior to arrival. Seen in ER on 05/09 for chest pain and transferred to [facility] in [place]. Angiogram negative. F/u at [facility] and recommened heart monitor for 30 days. Returned home on the 06/13/19. Been feeling well. No concerns or new cardioevents. H/o DM, HTN, obesity. Ekg shows 1st degree AV block, RBBB, bifasciular block, unchanged from previous EKG from 05/09/19. Feels well now, no further dizziness or weakness. Vitals are stable. Patient does not appear ill. Onset: Today, Sudden Onset Date: 06/25/19 Onset Time: 15:30 Duration: Hour(s):, Resolved Prior to Arrival Location: Reports: Generalized Severity: Mild Improves with: Reports: None Worsens with: Reports: None Associated Symptoms: Reports: Syncope, Weakness. Denies: Confusion, Chest Pain , Fever/Chills, Headaches, Nausea/Vomiting, Shortness of Breath - Related Data Allergies Allergy/AdvReac Type Severity Reaction Status Date / Time No Known Drug Allergies Allergy Cannot Verified 06/25/19 18:31 Remember Home Meds: Home Meds atorvaSTATin [Lipitor] 40 mg PO BEDTIME 04/13/15 [History] metFORMIN HCl [Metformin HCl] 1,000 mg PO BID 04/13/15 [History] amLODIPine Besylate [Amlodipine Besylate] 10 mg PO DAILY 03/30/19 [History] glipiZIDE [Glipizide Xl] 10 mg PO DAILY 03/30/19 [History] Aspirin 325 mg PO DAILY 05/09/19 [History] Losartan Potassium [Cozaar] 100 mg PO DAILY 05/09/19 [History] Omeprazole 20 mg PO BID 05/09/19 [History] hydroCHLOROthiazide [Hydrochlorothiazide] 12.5 mg PO DAILY 05/09/19 [History] Non-Formulary Medication [NF Drug] 2 spray NASBOTH BID 06/25/19 [History] Past Medical History HEENT History: Reports: Cataract, Impaired Vision Cardiovascular History: Reports: High Cholesterol, Hypertension, SOB on Exertion Respiratory History: Reports: None, Other (See Below) Other Respiratory History: Pneumonia in the past Gastrointestinal History: Reports: None Genitourinary History: Reports: Renal Calculus Musculoskeletal History: Reports: None Neurological History: Reports: None Psychiatric History: Reports: None Endocrine/Metabolic History: Reports: Diabetes, Type II, Obesity/BMI 30+ Hematologic History: Reports: None Immunologic History: Reports: None Oncologic (Cancer) History: Reports: None Dermatologic History: Reports: None - Infectious Disease History Infectious Disease History: Reports: Chicken Pox - Past Surgical History Head Surgeries/Procedures: Reports: None HEENT Surgical History: Reports: Cataract Surgery Cardiovascular Surgical History: Reports: None Respiratory Surgical History: Reports: None GI Surgical History: Reports: None Male Surgical History: Reports: Kidney Stone Extraction Musculoskeletal Surgical History: Reports: None Social & Family History - Family History Family Medical History: Noncontributory - Tobacco Use Smoking Status *Q: Never Smoker - Caffeine Use Caffeine Use: Reports: Coffee - Recreational Drug Use Recreational Drug Use: No ED ROS GENERAL - Review of Systems Review Of Systems: See Below Constitutional: Reports: Weakness. Denies: Fatigue, Diaphoresis, Weight Gain HEENT: Denies: Vertigo, Vision Change Respiratory: Denies: Shortness of Breath, Wheezing, Cough Cardiovascular: Reports: Dyspnea on Exertion, Lightheadedness, Syncope. Denies : Chest Pain, Blood Pressure Problem, Palpitations Endocrine: Reports: High Glucose GI/Abdominal: Denies: Abdominal Pain, Diarrhea, Nausea, Vomiting : Reports: No Symptoms Musculoskeletal: Reports: No Symptoms Skin: Reports: No Symptoms Neurological: Reports: Dizziness, Syncope, Weakness. Denies: Headache, Numbness , Pre-Existing Deficit, Seizure, Tingling, Trouble Speaking, Difficulty Walking , Change in Speech, Gait Disturbance Psychiatric: Reports: No Symptoms Hematologic/Lymphatic: Reports: No Symptoms Immunologic: Reports: No Symptoms ED EXAM, GENERAL - Physical Exam Exam: See Below Exam Limited By: No Limitations General Appearance: Alert, No Apparent Distress, Obese Eye Exam: Bilateral Eye: EOMI, PERRL Ears: Normal External Exam, Normal Canal, Hearing Grossly Normal, Normal TMs Nose: Normal Inspection Throat/Mouth: Normal Inspection, Normal Voice, No Airway Compromise Head: Normocephalic, Other (head abrasion) Neck: Normal Inspection, Supple, Full Range of Motion. No: Carotid Bruit, Limited Range of Motion, Lymphadenopathy (L), Lymphadenopathy (R) Respiratory/Chest: No Respiratory Distress, Lungs Clear, Normal Breath Sounds, No Accessory Muscle Use, Chest Non-Tender Cardiovascular: Normal Peripheral Pulses, Regular Rate, Rhythm Peripheral Pulses: 1+: Carotid (L), Carotid (R), Radial (L), Radial (R), Dorsalis Pedis (L), Dorsalis Pedis (R) GI/Abdominal: Normal Bowel Sounds, Soft, Non-Tender, No Organomegaly, No Distention Back Exam: Normal Inspection Extremities: Normal Inspection, Normal Range of Motion, Non-Tender, Pedal Edema (1+) Neurological: Alert, Oriented, CN II-XII Intact, Normal Cognition, Normal Gait, Normal Reflexes, No Motor/Sensory Deficits Psychiatric: Normal Affect, Normal Mood Skin Exam: Warm, Dry, Intact, Normal Color, No Rash Lymphatic: No Adenopathy EKG INTERPRETATION EKG Date: 06/25/19 Rhythm: Other (fist degree AV block) Rate (Beats/Min): 96 QRS: RBBB ST-T: Normal QT: Normal Comparison: Other: (05/09/19) EKG Interpretation Comments: sinus rhythm with 1st degree AV block RBBB Left anterior fascicular block Bifascicular block abnormal ECG Course - Vital Signs Last Recorded V/S: Last Vital Signs Temp 97.8 F 06/25/19 18:18 Pulse 96 06/25/19 19:20 Resp 16 06/25/19 19:20 BP 138/78 06/25/19 19:20 Pulse Ox 94 L 06/25/19 19:20 - Orders/Labs/Meds Orders: Active Orders 24 hr Category Date Time Status EKG Documentation Completion [RC] ASDIRECTED Care 06/25/19 18:51 Active BASIC METABOLIC PANEL,BMP [CHEM] Stat Lab 06/25/19 18:50 Ordered TROPONIN I [CHEM] Stat Lab 06/25/19 18:50 Ordered EKG 12 Lead [EK] Routine Ther 06/25/19 18:50 Ordered Labs: Laboratory Tests 06/25/19 Range/Units 18:50 WBC 8.02 (5.00-10.00) 10^3/uL RBC 4.98 (4.50-6.00) 10^6/uL Hgb 14.8 (13.0-17.0) g/dL Hct 44.4 (40.0-52.0) % MCV 89.2 (82.0-92.0) fL MCH 29.7 (27.0-31.0) pg MCHC 33.3 (32.0-36.0) g/dL RDW 13.7 (11.5-14.5) % Plt Count 209 (150-400) 10^3/uL MPV 9.8 (7.4-10.4) fL Immature Gran % (Auto) 0.4 (0.0-5.0) % Neut % (Auto) 70.8 H (50.0-70.0) % Lymph % (Auto) 19.2 L (20.0-40.0) % [place] % (Auto) 6.7 (2.0-8.0) % Eos % (Auto) 2.4 (1.0-3.0) % Baso % (Auto) 0.5 (0.0-1.0) % Immature Gran # (Auto) 0.03 (0.00-0.50) 10^3/uL Neut # (Auto) 5.68 (2.50-7.00) 10^3/uL Lymph # (Auto) 1.54 (1.00-4.00) 10^3/uL [place] # (Auto) 0.54 (0.10-0.80) 10^3/uL Eos # (Auto) 0.19 (0.10-0.30) 10^3/uL Baso # (Auto) 0.04 (0.00-0.10) 10^3/uL - Radiology Interpretation Free Text/Narrative:: CXR: Impression: No acute cardiopulmonary abnormality Departure - Departure Time of Disposition: 19:43 Disposition: Home, Self-Care 01 Condition: Good Clinical Impression: Heart block AV first degree Syncope Qualifiers: Syncope type: unspecified Qualified Code(s): R55 - Syncope and collapse Referrals: Claudia Murphy PA-C [Primary Care Provider] - Forms: ED Department Discharge Sepsis Event Note - Evaluation Sepsis Screening Result: No Definite Risk - Focused Exam Vital Signs: Vital Signs Temp Pulse Resp BP Pulse Ox 06/25/19 19:20 96 16 138/78 94 L 06/25/19 19:05 94 18 124/90 95 06/25/19 18:45 99 146/83 H 06/25/19 18:35 95 145/85 H 06/25/19 18:18 97.8 F 96 20 135/79 94 L Date Exam was Performed: 06/25/19 Time Exam was Performed: 19:37 - My Orders Last 24 Hours: My Active Orders 06/25/19 18:50 BASIC METABOLIC PANEL,BMP [CHEM] Stat TROPONIN I [CHEM] Stat EKG 12 Lead [EK] Routine 06/25/19 18:51 EKG Documentation Completion [RC] ASDIRECTED - Assessment/Plan Last 24 Hours: My Active Orders 06/25/19 18:50 BASIC METABOLIC PANEL,BMP [CHEM] Stat TROPONIN I [CHEM] Stat EKG 12 Lead [EK] Routine 06/25/19 18:51 EKG Documentation Completion [RC] ASDIRECTED Assessment:: syncope episode Heart block on heart monitor Plan: 1. observation 2. Rest 3. f/u with primary care Wednesday 4. f/u with cardiology for monitor. 5. Return to ER if symptoms return.
--- NOTE | 2019-06-25 19:14 | CR ---
[id number] RAD/RAD Chest PA or AP 1V EXAM: RAD Chest PA or AP 1V INDICATION: SYNCOPY COMPARISON: May 09, 2019 DISCUSSION: Cardiomediastinal silhouette is normal in size and contour. No infiltrate, effusion, pneumothorax, or edema. IMPRESSION: No acute cardiopulmonary abnormality. Kevin Mckeon DO 06/25/19 1913 Thank you for allowing us to participate in the care of your patient.
[2019-06-25 19:34] LABS: ANION GAP 15.6 mmol/L (5-15); CHLORIDE,CL 104 mmol/L (98-115); SODIUM,NA 145 mmol/L (136-145)
[2019-06-25 19:38] VITALS: BP 152/83; PULSE 91
== END 2019-06-25 20:00 | disposition home or self-care (01) ==
LOC: KA.ED 18:07
DX: R55 Syncope and collapse (principal); I44.0 Atrioventricular block, first degree; I10 Essential (primary) hypertension; E78.00 Pure hypercholesterolemia, unspecified; E11.9 Type 2 diabetes mellitus without complications; E66.9 Obesity, unspecified; Z68.37 Body mass index [BMI] 37.0-37.9, adult; Z79.899 Other long term (current) drug therapy; Z79.82 Long term (current) use of aspirin; Z79.84 Long term (current) use of oral hypoglycemic drugs
CPT/HCPCS: 36415; 71045; 80048; 84484; 85025; 93005; 99284; 99284-25

== ENCOUNTER 2019-06-28 14:51 | Emergency (ER) | payer MEDICARE, BC, OTHER ==
--- NOTE | 2019-06-28 15:34 | EDM.PDOC ---
ED HPI GENERAL MEDICAL PROBLEM - General Stated Complaint: SOB,WEAK Time Seen by Provider: 06/28/19 14:59 Source of Information: Reports: Patient, Significant Other History Limitations: Reports: No Limitations - History of Present Illness INITIAL COMMENTS - FREE TEXT/NARRATIVE: Patient presents with report of syncopal episode and a call from [facility] about a simultaneous event recorded on his youth nutritional monitor that they saw of high grade AV block/asystole. This event coincided with his syncopal episode about an hour ago. They told him to go to ER and he needs a pacemaker. When he fell today he was between his bed and the wall which kind of protected him as he was wedged between them and didn't fall hard. Three days ago he had a similar episode but hit his head and was evaluated here in ER at that time also. He is feeling fine now. - Related Data Allergies Allergy/AdvReac Type Severity Reaction Status Date / Time No Known Drug Allergies Allergy Cannot Verified 06/28/19 14:57 Remember Home Meds: Home Meds atorvaSTATin [Lipitor] 40 mg PO BEDTIME 04/13/15 [History] metFORMIN HCl [Metformin HCl] 1,000 mg PO BID 04/13/15 [History] amLODIPine Besylate [Amlodipine Besylate] 10 mg PO DAILY 03/30/19 [History] glipiZIDE [Glipizide Xl] 10 mg PO DAILY 03/30/19 [History] Aspirin 325 mg PO DAILY 05/09/19 [History] Losartan Potassium [Cozaar] 100 mg PO DAILY 05/09/19 [History] Omeprazole 20 mg PO BID 05/09/19 [History] hydroCHLOROthiazide [Hydrochlorothiazide] 12.5 mg PO DAILY 05/09/19 [History] Non-Formulary Medication [NF Drug] 2 spray NASBOTH BID 06/25/19 [History] Past Medical History HEENT History: Reports: Cataract, Impaired Vision Cardiovascular History: Reports: High Cholesterol, Hypertension, SOB on Exertion Respiratory History: Reports: None, Other (See Below) Other Respiratory History: Pneumonia in the past Gastrointestinal History: Reports: None Genitourinary History: Reports: Renal Calculus Musculoskeletal History: Reports: None Neurological History: Reports: None Psychiatric History: Reports: None Endocrine/Metabolic History: Reports: Diabetes, Type II, Obesity/BMI 30+ Hematologic History: Reports: None Immunologic History: Reports: None Oncologic (Cancer) History: Reports: None Dermatologic History: Reports: None - Infectious Disease History Infectious Disease History: Reports: Chicken Pox - Past Surgical History Head Surgeries/Procedures: Reports: None HEENT Surgical History: Reports: Cataract Surgery Cardiovascular Surgical History: Reports: None Respiratory Surgical History: Reports: None GI Surgical History: Reports: None Male Surgical History: Reports: Kidney Stone Extraction Musculoskeletal Surgical History: Reports: None Social & Family History - Family History Family Medical History: Noncontributory - Caffeine Use Caffeine Use: Reports: Coffee ED ROS GENERAL - Review of Systems Review Of Systems: Comprehensive ROS is negative, except as noted in HPI. ED EXAM, GENERAL - Physical Exam Exam: See Below Exam Limited By: No Limitations General Appearance: Alert, WD/WN, No Apparent Distress Eye Exam: Bilateral Eye: EOMI, Normal Inspection, PERRL Ears: Normal External Exam, Hearing Grossly Normal Nose: Normal Inspection, No Blood Throat/Mouth: Normal Inspection, Normal Lips, Normal Voice, No Airway Compromise Head: Atraumatic, Normocephalic Neck: Normal Inspection, Full Range of Motion Respiratory/Chest: No Respiratory Distress, Lungs Clear, Normal Breath Sounds, No Accessory Muscle Use Cardiovascular: Regular Rate, Rhythm, No Murmur GI/Abdominal: Normal Bowel Sounds, Soft, Non-Tender Back Exam: Normal Inspection, Full Range of Motion Extremities: Normal Inspection, Normal Range of Motion Neurological: Alert, Oriented, CN II-XII Intact, Normal Cognition, No Motor/ Sensory Deficits Psychiatric: Normal Affect, Normal Mood Skin Exam: Warm, Dry, Intact, Normal Color, No Rash Course - Re-Assessments/Exams Free Text/Narrative Re-Assessment/Exam: 06/28/19 16:02 I reviewed the event monitor recording that was faxed here showing 20+ second pause interrupted by a single ventricular beat midway (10.4 second pause, 1 beat , 9.9 second pause). Patient would like to go to [facility] in [place] since [place] is so far away. I discussed case with Dr. Coelho who accepted for transfer. Patient stable but blood pressure is going up a little now most likely due to anxiety. Will give a dose of Lorazepam. Departure - Departure Time of Disposition: 15:56 Disposition: DC/Tfer to Acute Hospital 02 Reason for Transfer *Q: Other Condition: Good Clinical Impression: AV block, complete, Asystole Episode of syncope Qualifiers: Syncope type: unspecified Qualified Code(s): R55 - Syncope and collapse Referrals: Claudia Murphy PA-C [Primary Care Provider] -
[2019-06-28] MEDS: LORazepam 0.5 MG Tab PO ONE (16:12)
[2019-06-28 17:13] VITALS: BP 175/86; PULSE 94
== END 2019-06-28 16:15 ==
LOC: KA.ED 14:51
DX: I44.2 Atrioventricular block, complete (principal); R55 Syncope and collapse; E11.9 Type 2 diabetes mellitus without complications; E66.9 Obesity, unspecified; Z79.899 Other long term (current) drug therapy; Z79.84 Long term (current) use of oral hypoglycemic drugs; Z79.82 Long term (current) use of aspirin; Z68.37 Body mass index [BMI] 37.0-37.9, adult
CPT/HCPCS: 99284; 99285; A9270

== ENCOUNTER 2019-07-07 09:09 | Emergency (ER) | payer MEDICARE, BC, OTHER ==
[2019-07-07 09:19] VITALS: BP 131/71; PULSE 79
[2019-07-07] MEDS ORDERED: Sodium Chloride 0.9% 10 ML Syringe FLUSH PRN (09:30)
[2019-07-07 10:03] LABS: ANION GAP 14.5 mmol/L (5-15); CHLORIDE,CL 104 mmol/L (98-115); SODIUM,NA 145 mmol/L (136-145)
--- NOTE | 2019-07-07 10:07 | CR ---
[id number] RAD/RAD Chest PA or AP 1V EXAM: FRONTAL CHEST INDICATION: Shortness of breath status post pacemaker placement. COMPARISON: June 25, 2019. DISCUSSION: Borderline heart size. Left subclavian approach pacemaker leads with the tips overlying the RA and RV. No pneumothorax is identified. The lungs are clear, mildly hypoinflated. IMPRESSION: 1. Left subclavian approach pacemaker leads without radiographically evident complication. Richard Stahl MD 07/07/19 1006 Thank you for allowing us to participate in the care of your patient.
--- NOTE | 2019-07-07 10:24 | EDM.PDOC ---
ED HPI GENERAL MEDICAL PROBLEM - General Chief Complaint: General Stated Complaint: SOB,difficulty breathing s/p pacer Time Seen by Provider: 07/07/19 09:50 Source of Information: Reports: Patient History Limitations: Reports: No Limitations - History of Present Illness INITIAL COMMENTS - FREE TEXT/NARRATIVE: Patient is a 69-year-old gentleman who presents to the emergency department this morning via private vehicle for complaint of shortness of breath. Patient states that he was seen here in the ER on June 28, subsequently because of symptoms was transferred to [facility]. Patient had a 6 day stay till July 04 in [place], and a implantable pacemaker was initiated. Patient returned home on July 04 and states that he's had mild to worsening shortness of breath since. Patient states symptoms are worse lying flat and a little bit better as he sits up. states that he is a heavy snorer and there has been a suspicion of sleep apnea. Patient denies fever, chest pain, headache, nausea, vomiting, diarrhea, abdominal pain, or lower extremity edema. Onset: Gradual Duration: Day(s): Quality: Reports: Other (no chest pain) Improves with: Reports: None Worsens with: Reports: None Associated Symptoms: Reports: Shortness of Breath. Denies: Chest Pain, Cough, Diaphoresis, Fever/Chills, Nausea/Vomiting - Related Data Allergies Allergy/AdvReac Type Severity Reaction Status Date / Time No Known Drug Allergies Allergy Cannot Verified 07/07/19 09:19 Remember Home Meds: Home Meds atorvaSTATin [Lipitor] 40 mg PO BEDTIME 04/13/15 [History] metFORMIN HCl [Metformin HCl] 1,000 mg PO BID 04/13/15 [History] amLODIPine Besylate [Amlodipine Besylate] 10 mg PO DAILY 03/30/19 [History] glipiZIDE [Glipizide Xl] 10 mg PO DAILY 03/30/19 [History] Aspirin 325 mg PO DAILY 05/09/19 [History] Losartan Potassium [Cozaar] 100 mg PO DAILY 05/09/19 [History] Omeprazole 20 mg PO DAILY 05/09/19 [History] hydroCHLOROthiazide [Hydrochlorothiazide] 12.5 mg PO DAILY 05/09/19 [History] Non-Formulary Medication [NF Drug] 2 spray NASBOTH BID 06/25/19 [History] Metoprolol Succinate 50 mg PO DAILY 07/07/19 [History] Past Medical History HEENT History: Reports: Cataract, Impaired Vision Cardiovascular History: Reports: High Cholesterol, Hypertension, Pacemaker, SOB on Exertion Respiratory History: Reports: None, Other (See Below) Other Respiratory History: Pneumonia in the past Gastrointestinal History: Reports: None Genitourinary History: Reports: Renal Calculus Musculoskeletal History: Reports: None Neurological History: Reports: None Psychiatric History: Reports: None Endocrine/Metabolic History: Reports: Diabetes, Type II, Obesity/BMI 30+ Hematologic History: Reports: None Immunologic History: Reports: None Oncologic (Cancer) History: Reports: None Dermatologic History: Reports: None - Infectious Disease History Infectious Disease History: Reports: Chicken Pox - Past Surgical History Head Surgeries/Procedures: Reports: None HEENT Surgical History: Reports: Cataract Surgery Cardiovascular Surgical History: Reports: Other (See Below) Other Cardiovascular Surgeries/Procedures: Pacemaker placed 06/29/19. Respiratory Surgical History: Reports: None GI Surgical History: Reports: None Male Surgical History: Reports: Kidney Stone Extraction Musculoskeletal Surgical History: Reports: None Social & Family History - Family History Family Medical History: Noncontributory - Caffeine Use Caffeine Use: Reports: Coffee ED ROS GENERAL - Review of Systems Review Of Systems: Comprehensive ROS is negative, except as noted in HPI. Constitutional: Reports: No Symptoms HEENT: Reports: No Symptoms Respiratory: Reports: Shortness of Breath Cardiovascular: Reports: No Symptoms Endocrine: Reports: No Symptoms GI/Abdominal: Reports: No Symptoms : Reports: No Symptoms Musculoskeletal: Reports: No Symptoms Skin: Reports: No Symptoms Neurological: Reports: No Symptoms Psychiatric: Reports: No Symptoms Hematologic/Lymphatic: Reports: No Symptoms Immunologic: Reports: No Symptoms ED EXAM, GENERAL - Physical Exam Exam: See Below Exam Limited By: No Limitations General Appearance: Alert, WD/WN, No Apparent Distress Eye Exam: Bilateral Eye: Normal Inspection Nose: Normal Inspection, Normal Mucosa, No Blood Throat/Mouth: Normal Inspection, Normal Oropharynx, No Airway Compromise Head: Atraumatic, Normocephalic Neck: Normal Inspection Respiratory/Chest: No Respiratory Distress, Lungs Clear, Normal Breath Sounds, No Accessory Muscle Use, Chest Non-Tender Cardiovascular: Regular Rate, Rhythm, No Murmur GI/Abdominal: Normal Bowel Sounds, Soft, Non-Tender Back Exam: Normal Inspection. No: CVA Tenderness (L), CVA Tenderness (R) Extremities: Normal Inspection Neurological: Alert, Oriented, Normal Cognition Psychiatric: Normal Affect, Normal Mood Skin Exam: Warm, Dry, Intact, Normal Color, No Rash Lymphatic: No Adenopathy Course - Vital Signs Last Recorded V/S: Last Vital Signs Temp 96.9 F 07/07/19 09:15 Pulse 79 07/07/19 09:15 Resp 18 07/07/19 09:15 BP 131/71 07/07/19 09:15 Pulse Ox 95 07/07/19 09:15 - Orders/Labs/Meds Orders: Active Orders 24 hr Category Date Time Status EKG Documentation Completion [RC] ASDIRECTED Care 07/07/19 09:30 Active Peripheral IV Care [RC] . DIRECTED Care 07/07/19 09:30 Active Sodium Chloride 0.9% [Saline Flush] Med 07/07/19 09:30 Active 10 ml FLUSH Q8HR PRN Peripheral IV Insertion Adult [OM.PC] Routine Oth 07/07/19 09:30 Ordered EKG 12 Lead [EK] Routine Ther 07/07/19 09:29 Ordered Medication Orders Sodium Chloride (Saline Flush) 10 ml FLUSH Q8HR PRN PRN Reason: keep vein open Last Admin: 07/07/19 09:34 Dose: 10 ml Labs: Laboratory Tests 07/07/19 07/07/19 Range/Units 09:34 09:34 WBC 7.13 (5.00-10.00) 10^3/uL RBC 4.71 (4.50-6.00) 10^6/uL Hgb 14.0 (13.0-17.0) g/dL Hct 42.2 (40.0-52.0) % MCV 89.6 (82.0-92.0) fL MCH 29.7 (27.0-31.0) pg MCHC 33.2 (32.0-36.0) g/dL RDW 13.0 (11.5-14.5) % Plt Count 194 (150-400) 10^3/uL MPV 10.0 (7.4-10.4) fL Immature Gran % (Auto) 0.1 (0.0-5.0) % Neut % (Auto) 71.9 H (50.0-70.0) % Lymph % (Auto) 16.0 L (20.0-40.0) % [place] % (Auto) 8.3 H (2.0-8.0) % Eos % (Auto) 3.1 H (1.0-3.0) % Baso % (Auto) 0.6 (0.0-1.0) % Immature Gran # (Auto) 0.01 (0.00-0.50) 10^3/uL Neut # (Auto) 5.13 (2.50-7.00) 10^3/uL Lymph # (Auto) 1.14 (1.00-4.00) 10^3/uL [place] # (Auto) 0.59 (0.10-0.80) 10^3/uL Eos # (Auto) 0.22 (0.10-0.30) 10^3/uL Baso # (Auto) 0.04 (0.00-0.10) 10^3/uL Sodium 145 (136-145) mmol/L Potassium 3.8 (3.3-5.3) mmol/L Chloride 104 (98-115) mmol/L Carbon Dioxide 30.3 (21.0-32.0) mmol/L Anion Gap 14.5 (5-15) mmol/L BUN 17 (6-25) mg/dL Creatinine 0.83 (0.51-1.17) mg/dL Est Cr Clr Drug Dosing 76.32 mL/min Estimated GFR (MDRD) > 60 mL/min Glucose 264 H (75 - 99) mg/dL Calcium 9.3 (8.7-10.3) mg/dL Total Bilirubin 0.6 (0.2-1.0) mg/dL AST 22 (15-37) U/L ALT 46 (12-78) U/L Alkaline Phosphatase 45 L (46-116) IU/L B-Natriuretic Peptide 25 (0-100) pg/mL Total Protein 6.9 (6.4-8.2) g/dL Albumin 3.21 (3.00-4.80) g/dL Meds: Medications Generic Name Dose Route Start Last Admin Trade Name Freq PRN Reason Stop Dose Admin Sodium Chloride 10 ml 07/07/19 09:30 07/07/19 09:34 Saline Flush FLUSH 10 ml Q8HR PRN Administration keep vein open - Radiology Interpretation Free Text/Narrative:: Chest x-ray shows no acute cardiopulmonary process and pacemaker leads without radiographically evident complication - Re-Assessments/Exams Free Text/Narrative Re-Assessment/Exam: 07/07/19 10:40 Patient afebrile, vital signs stable, sat 96% on room air, denies chest pain. Shortness of breath improves and patient sits up, and worsens as he lies flat. Discussed case with Dr. Peralta, steam tender from [facility]. After reviewing case, Dr. Peralta felt from a cardiology standpoint. Everything was stable. However, if shortness of breath persists to have patient return to the ER with a possible transfer back to [facility]. Shortness of breath may be attributed to sleep apnea. No current concern for covid 19. Based on afebrile , and no upper respiratory symptoms. 07/07/19 10:42 07/07/19 10:43 Departure - Departure Time of Disposition: 10:42 Disposition: Home, Self-Care 01 Condition: Good Clinical Impression: Shortness of breath - Discharge Information Instructions: Shortness of Breath, Adult, [id number] Referrals: Claudia Murphy PA-C [Primary Care Provider] - Forms: ED Department Discharge Additional Instructions: Follow-up [facility] on Wednesday. Return to emergency department sooner if symptoms continue or worsen. Take medication as directed Sepsis Event Note - Evaluation Sepsis Screening Result: No Definite Risk - Focused Exam Vital Signs: Vital Signs Temp Pulse Resp BP Pulse Ox 07/07/19 09:15 96.9 F 79 18 131/71 95 Date Exam was Performed: 07/07/19 Time Exam was Performed: 10:44 - My Orders Last 24 Hours: My Active Orders 07/07/19 09:29 EKG 12 Lead [EK] Routine 07/07/19 09:30 EKG Documentation Completion [RC] ASDIRECTED Peripheral IV Care [RC] . DIRECTED Sodium Chloride 0.9% [Saline Flush] 10 ml FLUSH Q8HR PRN Peripheral IV Insertion Adult [OM.PC] Routine - Assessment/Plan Last 24 Hours: My Active Orders 07/07/19 09:29 EKG 12 Lead [EK] Routine 07/07/19 09:30 EKG Documentation Completion [RC] ASDIRECTED Peripheral IV Care [RC] . DIRECTED Sodium Chloride 0.9% [Saline Flush] 10 ml FLUSH Q8HR PRN Peripheral IV Insertion Adult [OM.PC] Routine Assessment:: Shortness of breath Plan: Follow-up with PCP
== END 2019-07-07 10:58 | disposition home or self-care (01) ==
LOC: KA.ED 09:09
DX: R06.02 Shortness of breath (principal); E78.00 Pure hypercholesterolemia, unspecified; I10 Essential (primary) hypertension; E11.9 Type 2 diabetes mellitus without complications; E66.9 Obesity, unspecified; Z68.37 Body mass index [BMI] 37.0-37.9, adult; Z79.84 Long term (current) use of oral hypoglycemic drugs; Z79.82 Long term (current) use of aspirin; Z79.899 Other long term (current) drug therapy
CPT/HCPCS: 71045; 80053; 83880; 85025; 93005; 99284; 99285-25

== ENCOUNTER 2020-04-16 10:50 | Observation (INO) | payer MEDICARE, BC ==
[2020-04-16 11:29] LABS: ANION GAP 8.5 mmol/L (5-15); CHLORIDE,CL 103 mmol/L (98-107); SODIUM,NA 141 mmol/L (136-145)
[2020-04-16] MEDS ORDERED: Iopamidol 755 Mg/ML 100 ML Bottle IV ONE (11:54)
[2020-04-16] MEDS ORDERED: Sodium Chloride 0.9% 50 ML IV SCH (12:00)
[2020-04-16] MEDS ORDERED: Ondansetron 4 MG/2 ML SDV IV PRN (15:24)
[2020-04-16] MEDS ORDERED: HYDROmorphone 1 MG/ML Syringe IVPUSH PRN (15:40)
--- NOTE | 2020-04-16 16:39 | CR ---
[id number] RAD/RAD Chest PA And Lateral EXAM: RAD Chest PA And Lateral INDICATION: SHORTNESS OF BREATH. COMPARISON: July 07, 2019. DISCUSSION: Left chest wall cardiac conduction device. Cardiomediastinal silhouette is normal in size and contour. No infiltrate, effusion, pneumothorax, or edema. IMPRESSION: No acute cardiopulmonary abnormality. Kevin Mckeon DO 04/16/20 [id number] Thank you for allowing us to participate in the care of your patient.
[2020-04-16 16:48] LABS: HEMOGLOBIN A1C 7.9 % (4.3-5.7)
[2020-04-16] MEDS: Sodium Chloride 0.9% 1,000 ML IV SCH (17:34)
[2020-04-16] MEDS: Piperacillin/Tazobactam/Dext 3.375 GM in Premix Bag 1 BAG IV SCH ×2 (17:35→23:07)
[2020-04-16] MEDS: Acetaminophen/oxyCODONE 325-5 MG Tab PO PRN ×2 (18:44→23:10)
--- NOTE | 2020-04-16 20:06 | CONS ---
DATE OF CONSULTATION: 04/16/2020 CONSULTING PHYSICIAN: Judd Knight MD REQUESTING PHYSICIAN: HISTORY OF PRESENT ILLNESS: This patient is a 70-year-old patient who presented to the [facility] with acute right-sided moderate severe pain in the abdomen since last night. He also had mild pain approximately 48 hours. He felt that the pain had gotten worse. He did not have anything to eat today. He had not noted any other food intolerances. The pain was about 8/10. The pain was present in the right upper quadrant region. Some nausea, but no vomiting. No fever. No urinary tract symptoms. No chest pain. The patient has had a past history of shortness of breath and COPD. He takes Advair for it. He has history of hypertension and takes amlodipine and hydrochlorothiazide. PAST MEDICAL HISTORY: Also includes hypercholesteremia, environmental allergies, depression, anxiety, type 2 diabetes mellitus, and a pacemaker that was inserted at [facility] in [place]. He is being followed by Cardiology for this problem. He stated that they may add a defibrillator component to the pacemaker, but that was not done at this time. His heart rate was still going a little faster than usual and so his metoprolol was increased from 50 to 75 mg. He has history of GE reflux and he is on omeprazole as well as a probiotic. PAST SURGICAL HISTORY: Includes bilateral cataract extractions, excision of cyst from his tongue and extracorporeal shock wave therapy for ureterolithiasis and a pacemaker placement. SOCIAL HISTORY: He is . His 's name is Natividad. His daughter's name is Domi Zamudio. 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 He is still quite involved in the business, although his son is being groomed to take over the business. Smoking tobacco. The patient does not smoke or use tobacco at this time. MEDICATIONS: Include atorvastatin for hypercholesteremia, Claritin for allergies, Lexapro for depression, glipizide and metformin for diabetes and metoprolol for his heart rate. Also, omeprazole and probiotic. MEDICATIONS: Include Advair Diskus one puff twice a day, amlodipine 10 mg once daily, aspirin 325 mg daily. Atorvastatin 40 mg daily at bedtime, Claritin-D 1 tablet daily, citalopram 10 mg daily, glipizide XL 10 mg daily, hydrochlorothiazide 12.5 mg daily, losartan 100 mg daily, metformin 1000 mg one- half tablet in the night, metoprolol 75 mg daily, omeprazole 20 mg delayed capsule one capsule twice a day, Probiotic once daily. ALLERGIES: None known. REVIEW OF SYSTEMS: HEAD AND NECK: No complaints. EYES, NOSE, EARS, AND THROAT: No complaints. LUNGS: See present history. ABDOMEN: The patient definitely has pain in his right upper quadrant region. HEART: No chest pain. No coughing. ABDOMEN: The patient definitely has complaints of right upper quadrant pain. MUSCULOSKELETAL: No complaints. SKIN: No complaints. PSYCHIATRIC: No complaints. On examination, the patient is alert and laying comfortably in his bed. His vital signs are as follows pulse is 84 respirations 16 blood pressure 140/82, temperature is 99. Head negative. Neck supple. ENT negative. Is normal. Slightly obese. Carotid pulses are full and equal. Trachea midline. No enlarged lymph nodes. Heart regular rhythm. Grade 1/6 systolic murmur in the apex. Lungs are clinically clear. Breath sounds at the right lung base are slightly diminished. Abdomen is obese and pendulous. Moderate tenderness is noted in the right upper quadrant region. Lezama sign is positive. No rebound. No masses. Middle pulses are full and equal. Neurological: Negative. Musculoskeletal slight edema is noted at the ankles. Peripheral pulses are full and equal. Neurological no external deformities. His EKG shows paced rhythm, left axis deviation, right bundle-branch block and probable lateral infarct, age undetermined. His electrolytes are normal. Random glucose is 182. BUN, creatinine were normal. GFR was greater than 60. CAT scan showed cholelithiasis with some gallbladder distention and no thickening of the gallbladder wall. The patient had minimal left-sided nephrolithiasis. Echocardiogram performed revealed ejection fraction of 50% to 55%. This was performed in December 2019 showed ejection fraction of 50% to 55%. Normal left ventricular systolic function. There is asymmetric hypertrophy involving the septal wall of the left ventricle. Echo findings also consistent with grade 1/4 of diastolic dysfunction. Right ventricular function was normal. FINAL DIAGNOSES: 1. Acute cholecystitis and cholelithiasis. 2. Type 2 diabetes mellitus. Last A1c on 09/04/2019 was 7.1. 3. Hypertension, stable. 4. Pacemaker, stable. 5. Hypercholesterolemia, stable. 6. Environmental allergies, stable. 7. Chronic obstructive pulmonary disease, stable. 8. Depression, stable. 9. 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 10.Depression, stable. 11.GE reflux, stable. The patient has acute cholecystitis and cholelithiasis. However, he is high of risk because of his heart and lung diseases. Also because of morbid exogenous obesity, BMI of 40. I suspect that he would be better operated at a tertiary facility. As such, I would recommend that he be transferred to [place] for his operative procedure that can be conducted tomorrow. Decision has been discussed with the patient and his provider MAXIM French. Thank you very much for this interesting consultation. /[id number]/MODL MTDD
[2020-04-16] MEDS ORDERED: metFORMIN 500 MG Tab PO SCH (21:00)
[2020-04-16] MEDS ORDERED: atorvaSTATin 40 MG Tab PO SCH (21:00)
[2020-04-16] MEDS ORDERED: Non-Formulary Medication 1 Each NASBOTH SCH (21:00)
[2020-04-17] MEDS: Sodium Chloride 0.9% 1,000 ML IV SCH (04:56)
[2020-04-17] MEDS: Piperacillin/Tazobactam/Dext 3.375 GM in Premix Bag 1 BAG IV SCH ×2 (04:57→09:50)
[2020-04-17] MEDS: Acetaminophen/oxyCODONE 325-5 MG Tab PO PRN (06:30)
[2020-04-17 07:15] VITALS: BP 130/76; PULSE 61
[2020-04-17] MEDS ORDERED: Omeprazole 20 MG Cap.CR PO SCH (07:30)
[2020-04-17 07:54] LABS: ANION GAP 5.2 mmol/L (5-15); CHLORIDE,CL 105 mmol/L (98-107); SODIUM,NA 140 mmol/L (136-145)
[2020-04-17] MEDS ORDERED: Metoprolol Succinate 50 MG Tab.ER PO SCH (09:00)
[2020-04-17] MEDS ORDERED: Losartan 50 MG Tab PO SCH (09:00)
[2020-04-17] MEDS ORDERED: glipiZIDE 5 MG Tab.ER PO SCH (09:00)
[2020-04-17] MEDS ORDERED: amLODIPine 5 MG Tab PO SCH (09:00)
[2020-04-17] MEDS ORDERED: Hydrochlorothiazide 12.5 MG Cap PO SCH (09:00)
[2020-04-17] MEDS ORDERED: Aspirin 325 MG Tab.EC PO SCH (09:00)
--- NOTE | 2020-04-17 09:36 | PCM.DCSUM1 ---
Discharge Summary - Hospital Course Free Text/Narrative:: Admission Date: 04/16/2020 Discharge Date: 04/17/2020 Disposition: Transfer to [facility] CODE STATUS: Full Code Admission Diagnoses: RUQ pain Discharge Diagnoses: RUQ pain Cholelithiasis, cholecystectomy recommended Secondary Diagnoses: HTN - Amlodipine 10 mg PO daily - Losartan 100 mg PO daily - HCTZ 12.5 mg PO daily -Metoprolol XL 50 mg PO daily Hyperlipidemia - Atorvastatin 40 mg PO daily Diabetes Mellitus type 2 - Metformin 1,000 mg PO BID (on hold from 04/[address] with contrast) - Glipizide XL 10 mg PO daily Acid Reflux - Omeprazole 20 mg PO daily s/p Pacemaker June 2019 Obesity SUMMARY: Bridger is a 70 yo M with a PNH of HTN, s/p pacemaker June 2019, Hyperlipidemia, acid reflux, DM, obesity who was admitted 04/16 through clinic with a 3 day hx of RUQ pain that was progressively getting worse. U/S was not available at our facility and he underwent CT abdomen/pelvis with IV contrast and he was noted to have a slightly distended gallbladder with cholechystolithiasis. Dr. Neeta Knight was consulted about doing a cholecystectomy here in [place] but he was deemed too high of a risk to operate safely on in [place]. He was admitted overnight for pain control. He received Percocet 2 tabs at 0630 today and Dilaudid 0.5 mg IV at 0845 today. He is more comfortable. I consulted with [facility], Dr. Land, and he graciously accepted him for transfer for surgical intervention. COVID testing done on 04/16 prior to admission was NEGATIVE. He has been NPO since admission, he is on NS at 100 mL/hour, this will be increased to 125 mL/hour en route. He will also continue Zosyn 3.375 grams IV q 6 hours as was started on admission. He will have Dilaudid available as well for pain control while en route. Diagnosis: Stroke: No Modified [place] Scale: No Signif.Disability Despite Sympt.Able to Carry Out Usual Act./Duties Modified [place] Scale Score: 1 - Discharge Data Discharge Date: 04/17/20 Discharge Disposition: DC/Tfer to Acute Hospital 02 Condition: Fair - Referral to Home Health Primary Care Physician: Claudia Murphy PA-C - Patient Summary/Data Consults: Consultations 04/16/20 15:24 Consult to Physician [CONS] Routine - Discharge Plan *PRESCRIPTION DRUG MONITORING PROGRAM REVIEWED*: Not Applicable *COPY OF PRESCRIPTION DRUG MONITORING REPORT IN PATIENT IVETTE: Not Applicable Home Medications: Home Meds atorvaSTATin [Lipitor] 40 mg PO BEDTIME 04/13/15 [History] metFORMIN HCl [Metformin HCl] 1,000 mg PO BID 04/13/15 [History] amLODIPine Besylate [Amlodipine Besylate] 10 mg PO DAILY 03/30/19 [History] glipiZIDE [Glipizide Xl] 10 mg PO DAILY 03/30/19 [History] Aspirin 325 mg PO DAILY 05/09/19 [History] Losartan Potassium [Cozaar] 100 mg PO DAILY 05/09/19 [History] Omeprazole 20 mg PO DAILY 05/09/19 [History] hydroCHLOROthiazide [Hydrochlorothiazide] 12.5 mg PO DAILY 05/09/19 [History] Non-Formulary Medication [NF Drug] 2 spray NASBOTH BID 06/25/19 [History] Metoprolol Succinate 50 mg PO DAILY 07/07/19 [History] Oxygen Therapy Mode: Room Air Forms: Interfacility Transfer EMTALA - Discharge Summary/Plan Comment DC Time >30 min.: No - General Info Date of Service: 04/17/20 Admission Dx/Problem (Free Text: RUQ pain, gallstones present. - Patient Data Vitals - Most Recent: Last Vital Signs Temp 98.2 F 04/17/20 07:00 Pulse 61 04/17/20 07:00 Resp 18 04/17/20 07:00 BP 130/76 04/17/20 07:00 Pulse Ox 94 L 04/17/20 07:00 Weight - Most Recent: 247 lb 3.2 oz I&O - Last 24 hours: Intake & Output 04/16/20 04/17/20 04/17/20 22:59 06:59 14:59 Intake Total 823 594 Output Total 0 Balance 823 594 Lab Results - Last 24 hrs: Laboratory Results - last 24 hr 04/16/20 04/16/20 04/16/20 Range/Units 11:00 11:00 11:00 WBC (5.00-10.00) 10^3/uL RBC (4.50-6.00) 10^6/uL Hgb (13.0-17.0) g/dL Hct (40.0-52.0) % MCV (82.0-92.0) fL MCH (27.0-31.0) pg MCHC (32.0-36.0) g/dL RDW (11.5-14.5) % Plt Count (150-400) 10^3/uL MPV (7.4-10.4) fL Immature Gran % (Auto) (0.0-5.0) % Neut % (Auto) (50.0-70.0) % Lymph % (Auto) (20.0-40.0) % [place] % (Auto) (2.0-8.0) % Eos % (Auto) (1.0-3.0) % Baso % (Auto) (0.0-1.0) % Neut # (Auto) (2.50-7.00) 10^3/uL Lymph # (Auto) (1.00-4.00) 10^3/uL [place] # (Auto) (0.10-0.80) 10^3/uL Eos # (Auto) (0.10-0.30) 10^3/uL Baso # (Auto) (0.00-0.10) 10^3/uL Immature Gran # (Auto) (0.00-0.50) 10^3/uL Sodium 141 (136-145) mmol/L Potassium 4.8 (3.5-5.1) mmol/L Chloride 103 (98-107) mmol/L Carbon Dioxide 34.3 H (21.0-32.0) mmol/L Anion Gap 8.5 (5-15) mmol/L BUN 15 (7-18) mg/dL Creatinine 0.97 (0.51-1.17) mg/dL Est Cr Clr Drug Dosing TNP Estimated GFR (MDRD) > 60 mL/min Glucose 182 H (70-140) mg/dL POC Glucose (74-100) mg/dL Hemoglobin A1c (4.3-5.7) % Calcium 9.7 (8.7-10.3) mg/dL Total Bilirubin 0.6 (0.2-1.0) mg/dL AST 35 (15-37) U/L ALT 55 (14-63) U/L Alkaline Phosphatase 51 (46-116) U/L Total Protein 7.6 (6.4-8.2) g/dL Albumin 3.51 (3.40-5.00) g/dL Amylase 49 (25-125) U/L Lipase 130 (73-393) U/L SARS CoV-2 RNA Rapid FELI (NEGATIVE) 04/16/20 04/16/20 04/16/20 Range/Units 12:35 13:50 13:55 WBC 6.37 (5.00-10.00) 10^3/uL RBC 5.28 (4.50-6.00) 10^6/uL Hgb 15.0 (13.0-17.0) g/dL Hct 46.1 (40.0-52.0) % MCV 87.3 (82.0-92.0) fL MCH 28.4 (27.0-31.0) pg MCHC 32.5 (32.0-36.0) g/dL RDW 14.0 (11.5-14.5) % Plt Count 158 (150-400) 10^3/uL MPV 11.2 H (7.4-10.4) fL Immature Gran % (Auto) 0.2 (0.0-5.0) % Neut % (Auto) 63.6 (50.0-70.0) % Lymph % (Auto) 25.3 (20.0-40.0) % [place] % (Auto) 8.6 H (2.0-8.0) % Eos % (Auto) 2.0 (1.0-3.0) % Baso % (Auto) 0.3 (0.0-1.0) % Neut # (Auto) 4.05 (2.50-7.00) 10^3/uL Lymph # (Auto) 1.61 (1.00-4.00) 10^3/uL [place] # (Auto) 0.55 (0.10-0.80) 10^3/uL Eos # (Auto) 0.13 (0.10-0.30) 10^3/uL Baso # (Auto) 0.02 (0.00-0.10) 10^3/uL Immature Gran # (Auto) 0.01 (0.00-0.50) 10^3/uL Sodium (136-145) mmol/L Potassium (3.5-5.1) mmol/L Chloride (98-107) mmol/L Carbon Dioxide (21.0-32.0) mmol/L Anion Gap (5-15) mmol/L BUN (7-18) mg/dL Creatinine (0.51-1.17) mg/dL Est Cr Clr Drug Dosing Estimated GFR (MDRD) mL/min Glucose (70-140) mg/dL POC Glucose (74-100) mg/dL Hemoglobin A1c 7.9 H (4.3-5.7) % Calcium (8.7-10.3) mg/dL Total Bilirubin (0.2-1.0) mg/dL AST (15-37) U/L ALT (14-63) U/L Alkaline Phosphatase (46-116) U/L Total Protein (6.4-8.2) g/dL Albumin (3.40-5.00) g/dL Amylase (25-125) U/L Lipase (73-393) U/L SARS CoV-2 RNA Rapid FELI Negative (NEGATIVE) 04/16/20 04/16/20 04/17/20 Range/Units 17:47 21:08 07:30 WBC 5.85 (5.00-10.00) 10^3/uL RBC 4.90 (4.50-6.00) 10^6/uL Hgb 13.9 (13.0-17.0) g/dL Hct 43.4 (40.0-52.0) % MCV 88.6 (82.0-92.0) fL MCH 28.4 (27.0-31.0) pg MCHC 32.0 (32.0-36.0) g/dL RDW 14.4 (11.5-14.5) % Plt Count 126 L (150-400) 10^3/uL MPV 9.7 (7.4-10.4) fL Immature Gran % (Auto) 0.2 (0.0-5.0) % Neut % (Auto) 65.4 (50.0-70.0) % Lymph % (Auto) 22.4 (20.0-40.0) % [place] % (Auto) 9.6 H (2.0-8.0) % Eos % (Auto) 2.1 (1.0-3.0) % Baso % (Auto) 0.3 (0.0-1.0) % Neut # (Auto) 3.83 (2.50-7.00) 10^3/uL Lymph # (Auto) 1.31 (1.00-4.00) 10^3/uL [place] # (Auto) 0.56 (0.10-0.80) 10^3/uL Eos # (Auto) 0.12 (0.10-0.30) 10^3/uL Baso # (Auto) 0.02 (0.00-0.10) 10^3/uL Immature Gran # (Auto) 0.01 (0.00-0.50) 10^3/uL Sodium (136-145) mmol/L Potassium (3.5-5.1) mmol/L Chlor[place] (98-107) mmol/L Carbon Dioxide (21.0-32.0) mmol/L Anion Gap (5-15) mmol/L BUN (7-18) mg/dL Creatinine (0.51-1.17) mg/dL Est Cr Clr Drug Dosing Estimated GFR (MDRD) mL/min Glucose (70-140) mg/dL POC Glucose 85 105 H (74-100) mg/dL Hemoglobin A1c (4.3-5.7) % Calcium (8.7-10.3) mg/dL Total Bilirubin (0.2-1.0) mg/dL AST (15-37) U/L ALT (14-63) U/L Alkaline Phosphatase (46-116) U/L Total Protein (6.4-8.2) g/dL Albumin (3.40-5.00) g/dL Amylase (25-125) U/L Lipase (73-393) U/L SARS CoV-2 RNA Rapid FELI (NEGATIVE) 04/17/20 04/17/20 Range/Units 07:30 08:36 WBC (5.00-10.00) 10^3/uL RBC (4.50-6.00) 10^6/uL Hgb (13.0-17.0) g/dL Hct (40.0-52.0) % MCV (82.0-92.0) fL MCH (27.0-31.0) pg MCHC (32.0-36.0) g/dL RDW (11.5-14.5) % Plt Count (150-400) 10^3/uL MPV (7.4-10.4) fL Immature Gran % (Auto) (0.0-5.0) % Neut % (Auto) (50.0-70.0) % Lymph % (Auto) (20.0-40.0) % [place] % (Auto) (2.0-8.0) % Eos % (Auto) (1.0-3.0) % Baso % (Auto) (0.0-1.0) % Neut # (Auto) (2.50-7.00) 10^3/uL Lymph # (Auto) (1.00-4.00) 10^3/uL [place] # (Auto) (0.10-0.80) 10^3/uL Eos # (Auto) (0.10-0.30) 10^3/uL Baso # (Auto) (0.00-0.10) 10^3/uL Immature Gran # (Auto) (0.00-0.50) 10^3/uL Sodium 140 (136-145) mmol/L Potassium 3.9 (3.5-5.1) mmol/L Chloride 105 (98-107) mmol/L Carbon Dioxide 33.7 H (21.0-32.0) mmol/L Anion Gap 5.2 (5-15) mmol/L BUN 15 (7-18) mg/dL Creatinine 1.05 (0.51-1.17) mg/dL Est Cr Clr Drug Dosing 59.46 Estimated GFR (MDRD) > 60 mL/min Glucose 134 (70-140) mg/dL POC Glucose 131 H (74-100) mg/dL Hemoglobin A1c (4.3-5.7) % Calcium 8.8 (8.7-10.3) mg/dL Total Bilirubin 1.1 H (0.2-1.0) mg/dL AST 38 H (15-37) U/L ALT 51 (14-63) U/L Alkaline Phosphatase 38 L (46-116) U/L Total Protein 6.7 (6.4-8.2) g/dL Albumin 3.05 L (3.40-5.00) g/dL Amylase (25-125) U/L Lipase (73-393) U/L SARS CoV-2 RNA Rapid FELI (NEGATIVE) Med Orders - Current: Current Medications Amlodipine Besylate (Norvasc) 10 mg PO DAILY [facility] Aspirin (Ecotrin) 325 mg PO DAILY [facility] Atorvastatin Calcium (Lipitor) 40 mg PO BEDTIME [facility] Last Admin: 04/16/20 21:10 Dose: 40 mg Documented by: Glipizide (Glucotrol Xl) 10 mg PO DAILY [facility] Hydrochlorothiazide (Hydrochlorothiazide) 12.5 mg PO DAILY [facility] Hydromorphone HCl (Dilaudid) 0.5 mg IVPUSH Q2H PRN PRN Reason: Pain (severe 7-10) Last Admin: 04/17/20 08:52 Dose: 0.5 mg Documented by: Sodium Chloride (Normal Saline) 50 mls @ 100 mls/hr IV ASDIRECTED [facility] Last Admin: 04/16/20 12:41 Dose: 200 mls/hr Documented by: Piperacillin/Tazobactam/ (Dextrose 3.375 gm/ Premix) 50 mls @ 100 mls/hr IV Q6H [facility] Last Admin: 04/17/20 04:57 Dose: 100 mls/hr Documented by: Sodium Chloride (Normal Saline) 1,000 mls @ 100 mls/hr IV ASDIRECTED [facility] Last Admin: 04/17/20 04:56 Dose: 100 mls/hr Documented by: Losartan Potassium (Cozaar) 100 mg PO DAILY [facility] Metoprolol Succinate (Toprol Xl) 50 mg PO DAILY [facility] Omeprazole (Omeprazole) 20 mg PO ACBREAKFAST [facility] Last Admin: 04/17/20 08:48 Dose: Not Given Documented by: Ondansetron HCl (Zofran) 8 mg IV Q4H PRN PRN Reason: Nausea/Vomiting Oxycodone/Acetaminophen (Percocet 325-5 Mg) 2 tab PO Q4H PRN PRN Reason: Pain (moderate 4-6) Last Admin: 04/17/20 06:30 Dose: 2 tab Documented by: Discontinued Medications Iopamidol (Isovue-370 (76%)) 100 ml IV ONETIME ONE Stop: 04/16/20 11:55 Last Admin: 04/16/20 12:40 Dose: 100 ml Documented by: Metformin HCl (Glucophage) 1,000 mg PO BID YUKI - Exam General: Reports: Alert, Oriented, Cooperative, Mild Distress (He appears uncomfortable) Lungs: Reports: Clear to Auscultation Cardiovascular: Reports: Regular Rate, Regular Rhythm, No Murmurs GI/Abdominal Exam: Normal Bowel Sounds, Soft, Tender (Significant RUQ tenderness with minimal palpation) Extremities: Pedal Edema (Trace pitting edema bilaterally)
== END 2020-04-17 10:10 ==
LOC: KA.MS 10:50 → KA.OC 10:50 → KA.MS 14:55
DX: R07.81 Pleurodynia (principal); R10.11 Right upper quadrant pain; E78.00 Pure hypercholesterolemia, unspecified; E11.9 Type 2 diabetes mellitus without complications; I10 Essential (primary) hypertension; K21.9 Gastro-esophageal reflux disease without esophagitis; K80.10 Calculus of gallbladder with chronic cholecystitis without obstruction; Z20.822 Contact with and (suspected) exposure to COVID-19; Z79.82 Long term (current) use of aspirin; Z79.899 Other long term (current) drug therapy; Z79.84 Long term (current) use of oral hypoglycemic drugs; Z95.0 Presence of cardiac pacemaker
CPT/HCPCS: 36415; 71046; 74177; 80053; 82150; 82962; 83036; 83690; 85025; 93005; 96365; 96366; 96375; 96376; 99217; 99220; A9270-GY; G0378; J1170; J2543; J7030; Q9967; U0002

== ENCOUNTER 2020-08-20 08:01 | Day surgery (SDC) | payer MEDICARE, BC ==
[2020-08-20] MEDS ORDERED: Propofol 200 MG/20 ML SDV IV ONE (08:02)
[2020-08-20] MEDS: Sodium Chloride 0.9% 10 ML Syringe FLUSH PRN (08:30)
[2020-08-20] MEDS: Sodium Chloride 0.9% 1,000 ML IV SCH (08:30)
[2020-08-20] MEDS ORDERED: Midazolam 1 MG/ML 2 ML SDV ONE (08:49)
[2020-08-20] MEDS ORDERED: Lidocaine 2% 5 ML SDV ONE (08:50)
[2020-08-20] MEDS ORDERED: Propofol 200 MG/20 ML SDV ONE ×2 (08:50→09:54)
--- NOTE | 2020-08-20 09:19 | PCM.PN ---
- General Info Date of Service: 08/20/20 - Review of Systems Systems Review Comment:: 70-year-old male with history of left upper quadrant abdominal pain here for EGD and colonoscopy. He does have a known history of ulcer disease in the past. It is been at least 6 years since his last colonoscopy. I have discussed the proposed colonoscopy with the patient. He agrees to proceed. Risks have been reviewed. His recent history and physical is reviewed and no significant changes are noted. - Patient Data Vitals - Most Recent: Last Vital Signs Temp 96.9 F 08/20/20 08:15 Pulse 90 08/20/20 08:15 Resp 16 08/20/20 08:15 BP 152/84 H 08/20/20 08:15 Pulse Ox 96 08/20/20 08:15 Weight - Most Recent: 107.501 kg Lab Results Last 24 Hours: Laboratory Results - last 24 hr 08/20/20 Range/Units 08:20 POC Glucose 161 H (70-140) mg/dL Med Orders - Current: Current Medications Sodium Chloride (Normal Saline) 1,000 mls @ 50 mls/hr IV ASDIRECTED YUKI Last Admin: 08/20/20 08:30 Dose: 50 mls/hr Documented by: Sodium Chloride (Sodium Chloride 0.9% 10 Ml Syringe) 10 ml FLUSH Q8HR PRN PRN Reason: keep vein open Last Admin: 08/20/20 08:30 Dose: 10 ml Documented by: Discontinued Medications Lidocaine (Lidocaine 2% 5 Ml Sdv) Confirm Administered Dose 5 ml .ROUTE .STK-MED ONE Stop: 08/20/20 08:51 Midazolam HCl (Midazolam 1 Mg/Ml 2 Ml Sdv) Confirm Administered Dose 2 mg .ROUTE .STK-MED ONE Stop: 08/20/20 08:50 Propofol (Propofol 200 Mg/20 Ml Sdv) Confirm Administered Dose 400 mg .ROUTE .STK-MED ONE Stop: 08/20/20 08:51 - Patient Data Lab Results Last 24 hrs: Laboratory Results - last 24 hr 08/20/20 Range/Units 08:20 POC Glucose 161 H (70-140) mg/dL Sepsis Event Note - Focused Exam Vital Signs: Vital Signs Temp Pulse Resp BP Pulse Ox 08/20/20 08:15 96.9 F 90 16 152/84 H 96 - Problem List Review Problem List Initiated/Reviewed/Updated: Yes - My Orders Last 24 Hours: My Active Orders 08/19/20 11:56 Resuscitation Status Routine 08/20/20 08:00 Blood Glucose Check, Bedside [RC] UPON Peripheral IV Care [RC] . DIRECTED Nothing Per Oral Diet [DIET] Sodium Chloride 0.9% [Normal Saline] 1,000 ml IV ASDIRECTED Sodium Chloride 0.9% [Saline Flush] 10 ml FLUSH Q8HR PRN Peripheral IV Insertion Adult [OM.PC] Routine 08/20/20 09:00 Verify Patient Consent Obtain [RC] ASDIRECTED - Assessment Assessment:: Left-sided abdominal pain History of ulcers - Plan Plan:: EGD and colonoscopy
--- NOTE | 2020-08-20 10:30 | PCM.OPNOTE ---
- General Post-Op/Procedure Note Date of Surgery/Procedure: 08/20/20 Operative Procedure(s): EGD with Biopsy and Colonoscopy with Polypectomy Findings: Normal appearing Upper Endoscopy Multiple colon polyps Pre Op Diagnosis: History of Peptic Ulcer disease. Left sided abdominal pain Post-Op Diagnosis: Normal Upper Endoscopy. Colon Polyps Anesthesia Technique: MAC Primary Surgeon: Chance Rivera Pathology: Biopsies of Duodenum and stomach Colon Polyps EBL in mLs: 3 Complications: None Condition: Good
[2020-08-20 12:30] VITALS: BP 130/69; PULSE 74
--- NOTE | 2020-08-20 13:24 | OR ---
DATE OF SURGERY: 08/20/2020 SURGEON: Chance Rivera MD PREOPERATIVE DIAGNOSIS: History of peptic ulcers and left-sided abdominal pain. POSTOPERATIVE DIAGNOSIS: Normal upper endoscopy and multiple colon polyps. OPERATION PERFORMED: Esophagogastroduodenoscopy with biopsy and colonoscopy with polypectomy. INDICATIONS FOR SURGERY: This 70-year-old male has had a persistent pain in the left upper portion of his abdomen. Workup has not revealed any cause of the pain and he comes for EGD and colonoscopy. The patient does have a known history of ulcer disease in the past. FINDINGS: On upper endoscopy, the lining of the patient's esophagus, stomach, and duodenum appeared normal. I do not see any ulcers or anatomic abnormalities. On colonoscopy, multiple polyps are noted. There is a 6 mm sessile polyp in the cecum. There was a 12 mm sessile polyp at the hepatic flexure, a 6 mm sessile polyp in the transverse colon, and a 5 mm sessile polyp at the splenic flexure. There was an 8 mm semi-pedunculated polyp in the sigmoid colon, 35 cm from the anal verge. The colon otherwise appears normal. No visible signs of inflammation or obvious reasons for the patient's pain identified. DESCRIPTION OF PROCEDURE: The patient was taken to the operating room. He was given intravenous sedation and with him in the left lateral decubitus position, the Olympus gastroscope was advanced through a mouth guard into the oral cavity. Under direct visualization, the scope was then advanced through the oropharynx into the esophagus and then advanced through the esophagus, stomach, and into the duodenum where examination to the 4th portion is performed. Examination is carefully examined and random biopsies of the duodenum were taken because of the patient's symptoms. The scope was withdrawn back into the stomach where full examination including retroflexed examination of the fundus was carried out. Random biopsies of the antrum as well as random biopsies of the greater curvature are taken to evaluate the patient's symptoms and to check for H pylori. The GE junction and esophagus were then re-examined as the scope is withdrawn and removed. Attention is turned to colonoscopy. Digital rectal exam was performed. No rectal masses were noted. The Olympus colonoscope was inserted into the rectum. Retroflexed examination of the rectal canal is performed. The scope was then carefully advanced to the level of the hepatic flexure where the larger sessile polyp was identified. This polyp is removed piecemeal with a cautery snare. Small fragments of residual polyp were cauterized and it did appear as if the polyp was completely removed. In order to be sure in followup exams that this polyp site would be identified, ink tattoos are placed in the colonic mucosa proximal and distal to the location of this polyp. The scope was then advanced to the cecum and cecal acquisition is confirmed by noting the normal internal cecal anatomy including the appendiceal orifice and the ileocecal valve. The assistance of hand pressure was required to reach the cecum because of some tortuosity of the colon. Careful examination of the cecum was carried out and the small cecal polyp was identified. This was removed with a cautery snare and retrieved into a polyp trap. The scope was then slowly withdrawn sequentially re-examining the colonic segments. During withdrawal of the scope, the other above-described polyps are each identified and removed with a cautery snare and retrieved. No sign of bleeding or any other complication was noted during the procedure and after the examination had been completed, the scope was removed and the patient was taken from the operating room in satisfactory condition. ESTIMATED BLOOD LOSS: 3 mL. COMPLICATIONS: None. PROGNOSIS: Good. /[id number]/MODL
== END 2020-08-20 12:05 | disposition home or self-care (01) ==
LOC: KA.SDS 08:01
PROVIDERS: ATTEND Surgery
DX: D12.3 Benign neoplasm of transverse colon (principal); D12.0 Benign neoplasm of cecum; K31.89 Other diseases of stomach and duodenum; E11.9 Type 2 diabetes mellitus without complications; Z90.49 Acquired absence of other specified parts of digestive tract; Z79.82 Long term (current) use of aspirin; Z79.899 Other long term (current) drug therapy; Z87.11 Personal history of peptic ulcer disease
CPT/HCPCS: 00813; 43239; 45381; 45385; 82947; J2250; J2704; J7030; 88305

== ENCOUNTER 2022-05-26 10:41 | Day surgery (SDC) | payer BC, MEDICARE ==
[2022-05-26] MEDS ORDERED: Propofol 200 MG/20 ML SDV IV ONE (10:42)
[2022-05-26] MEDS ORDERED: Sodium Chloride 0.9% 1,000 ML IV SCH (11:00)
[2022-05-26] MEDS ORDERED: Sodium Chloride 0.9% 10 ML Syringe FLUSH PRN (11:00)
[2022-05-26] MEDS ORDERED: Midazolam 1 MG/ML 2 ML SDV ONE (12:52)
[2022-05-26] MEDS ORDERED: Propofol 200 MG/20 ML SDV ONE ×2 (12:52→13:28)
[2022-05-26 14:53] VITALS: BP 115/69; PULSE 75
== END 2022-05-26 14:55 | disposition home or self-care (01) ==
LOC: KA.SDS 10:41
PROVIDERS: ATTEND Surgery
DX: D12.5 Benign neoplasm of sigmoid colon (principal); D12.0 Benign neoplasm of cecum; D12.3 Benign neoplasm of transverse colon; K62.1 Rectal polyp; F32.A Depression, unspecified; E11.9 Type 2 diabetes mellitus without complications; E78.00 Pure hypercholesterolemia, unspecified; I10 Essential (primary) hypertension; Z86.010 Personal history of colon polyps; Z79.899 Other long term (current) drug therapy
CPT/HCPCS: 00811; 82947; 88305; J2250; J2704; J7030